=== PATIENT | male | born 1970 | race Caucasian/White ===

== ENCOUNTER → 2020-11-27 15:39 | Outpatient (CLI) | payer OTHER, SELFPAY ==
--- NOTE | ~2020-11-27 | XR_ITS ---
EXAMINATION: XR chest 2V 11/27/2020 16:31 INDICATION: Tobacco use PROCEDURE: 2 view chest COMPARISON: 12/23/2004 FINDINGS: The lungs are clear. The cardiomediastinal silhouette is within normal limits. There are no pleural effusions. There is no pneumothorax suspected. There are healed right rib fractures. IMPRESSION: 1: NO ACUTE CARDIOPULMONARY DISEASE. Reviewed, dictated and finalized at location A. E SERVICE TECHNICIAN
== END ==
PROVIDERS: PCP Emergency Medicine; Visit Provider Emergency Medicine
DX: Z72.0 Tobacco use (principal)
CPT/HCPCS: 71046

== ENCOUNTER 2020-11-28 09:56 | Emergency (ER) | payer OTHER, SELFPAY ==
[2020-11-28 10:08] VITALS: BP 141/64; PULSE 94; RESP 18; TEMP 36.3; O2SAT 96
[2020-11-28 10:11] LABS: Glucose Point of Care 391 (65-105)
[2020-11-28 10:24] LABS: Basophils Absolute Auto 0.1 K/mm3 (0.0-0.1); Basophils Percent Auto 0.8 % (0.2-1.2); Eosinophils Absolute Auto 0.2 K/mm3 (0-0.3); Eosinophils Percent Auto 2.1 % (0-4.4); Hematocrit 45.8 % (42.0-52.0); Hemoglobin 16.5 g/dL (14.0-18.0); Immature Granulocyte Absolute 0.01 K/mm3 (0.00-0.031); Immature Granulocyte Percent A 0.1 % (0-0.5); Lymphocytes Absolute Auto 1.82 K/mm3 (0.9-3.2); Lymphocytes Percent Auto 23.6 % (18.3-44.2); Mean Corpuscular Hemoglobin 31.9 pg (26-34); Mean Corpuscular Volume 88.6 fl (80-100); Monocytes Absolute Auto 0.7 K/mm3 (0.1-0.6); Monocytes Percent Auto 8.4 % (2.6-8.5); Platelet Count Result 149 k/mm3 (150-375); Red Blood Count 5.17 M/mm3 (4.6-6.20); Red Cell Distribution Width 12.8 % (11.5-14.5); White Blood Count 7.7 K/mm3 (4.5-10.0)
[2020-11-28 10:36] LABS: Alanine Aminotransferase 71 U/L (4-50); Albumin Level 3.9 g/dL (3.5-5.1); Alkaline Phosphatase 169 U/L (38-126); Anion Gap 8 mmol/L (8-16); Aspartate Amino Transferase 76 U/L (17-59); Bilirubin,Total 0.6 mg/dL (0.2-1.3); Blood Urea Nitrogen 14 mg/dL (9-20); Carbon Dioxide 25 mmol/L (22-30); Chloride 101 mmol/L (98-107); Estimated CRCL calculation 141 ml/min; Estimated Glomerular Filt Rate > 60; Glucose 364 mg/dL (75-110); Magnesium 1.5 mg/dL (1.6-2.3); Potassium 4.3 mmol/L (3.4-5.0); Sodium 134 mmol/L (137-145)
[2020-11-28 10:37] LABS: Add Urine Microscopic? YES; Appearance Urine Clear (Clear); Bilirubin Urine Negative (Negative); Blood Urine Negative (Negative); Color Urine Straw (Yellow); Glucose Urine UA 3+ mg/dL (Negative); Ketones Urine Negative (Negative); Leukocyte Esterase Ur Negative LEU/UL (Negative); Nitrate Urine Negative (Negative); Protein Urine Negative (Negative); RBC Urine 0-2 /hpf (0-2); Specific Grav Ur 1.029 (1.001-1.035); Squamous Epithelial Cell Urine Rare /hpf (Few); Urobilinogen Urine Negative mg/dL (<2.0); WBC Urine 0-3 /hpf
[2020-11-28 11:44] VITALS: BP 137/81; PULSE 89; RESP 18; TEMP 36.6; O2SAT 97
[2020-11-28 12:07] LABS: Glucose Point of Care 309 (65-105)
--- NOTE | 2020-11-28 12:16 | ED.RECABL ---
HPI - Recheck/Abnormal Lab/Rx General Chief Complaint: Recheck/Abnormal Lab/Rx Stated Complaint: high blood sugar Time Seen by Provider: 11/28/20 11:53 Source: patient Mode of arrival: ambulatory Limitations: no limitations History of Present Illness HPI narrative: This is a 50 year old male who presents for evaluation of elevated blood sugar. Patient was evaluated by his primary care physician 2 days ago for the first time. He was diagnosed with Diabetes 2 days ago with a blood sugar of 500. Yesterday he had routine labs performed, and today he was called by his primary care physician to come to ER for an elevated blood sugar. He was started on metformin 500 mg twice a day, lisinopril 10 mg and atorvastatin. He reports frequent urination. He denies chest pain , abdominal pain, blurred vision, dizziness, nausea or vomiting. His primary care physician is Dr. Roberto Related Data Home Medications Medication Instructions Recorded Confirmed amlodipine 11/28/20 11/28/20 atorvastatin 11/28/20 lisinopril 11/28/20 metformin mg 11/28/20 Allergies Allergy/AdvReac Type Severity Reaction Status Date / Time No Known Drug Allergies Allergy Mild Unknown Verified 11/28/20 11:57 Review of Systems Review of Systems: All systems reviewed & are unremarkable except as noted in HPI and below Constitutional: Constitutional: Denies chills and Denies fever(s) Cardiovascular: Cardiovascular: Denies chest pain Respiratory: Respiratory: Denies cough and Denies dyspnea Gastrointestinal: Gastrointestinal: Denies abdominal pain and Denies nausea PMFSH Past Medical History Medical History (Updated 11/28/20 @ 12:31 by Nancy Servin MD) HLD (hyperlipidemia) HTN (hypertension) Nasal fracture Surgical History Surgical History No history of previous surgery Social History Social History (Updated 09/24/19 @ 00:10 by Luiz Vanegas) Smoking status: Current every day smoker Gender identity (if verbalized by the patient): Male Exam Const: General: no acute distress and alert Nutritional Appearance: obese Orientation/consciousness: patient oriented x3 Eyes: Pupils: Equal, round and reactive pupils present EOM: EOMs intact bilaterally Chest: Chest palpation & inspection: normal inspection of the chest Resp: Effort & Inspection: normal respiratory effort and no retractions Auscultation: clear to auscultation bilaterally Cardio: Rate: regular rate Rhythm: regular rhythm Heart sounds: no murmurs GI: GI Palp: Yes Soft to palpation, No Tenderness to palpation present (GI) and No Guarding due to palpation present (GI) Auscultation: normal bowel sounds Skin: General skin exam: normal color Rashes: no rashes Neuro: General: patient oriented x3, moves all extremities and CN's II-XI intact bilaterally Course Reevaluation(s) Reevaluation #1: I Discussed with patient that he will need to monitor blood sugar and his diet. He was found to have BS 309 but no kidney failure. No DKA. He is stable for discharge. Date: 11/28/20 Time: 12:28 Consultations Consultation #1: I spoke with Dr. Roberto. He reviewed labs today. He states he wants to keep patient's metformin at 500 mg BID. He does not want to make any changes to his medications. Date: 11/28/20 Time: 12:20 Vital Signs Vital signs: Vital Signs Temperature 97.3 F L 11/28/20 10:08 Pulse Rate 94 11/28/20 10:08 Respiratory Rate 18 11/28/20 10:08 Blood Pressure 141/64 H 11/28/20 10:08 Pulse Oximetry 96 11/28/20 10:08 Temperature 98 F 11/28/20 11:44 Pulse Rate 85 11/28/20 12:45 Respiratory Rate 16 11/28/20 12:45 Blood Pressure 139/85 11/28/20 12:45 Pulse Oximetry 97 11/28/20 12:45 MDM - Recheck/Abnormal Lab/Rx Lab Data Attestation: I reviewed the patient's lab results. Result diagrams: 11/28/20 10:14 11/28/20 10:14 Labs: Lab Results
[2020-11-28 12:38] LABS: Beta-Hydroxybutyrate/Acetoacetate 0.19 mmol/L (0.02-0.27)
[2020-11-28 12:45] VITALS: BP 139/85; PULSE 85; RESP 16; O2SAT 97
== END 2020-11-28 12:45 | disposition home or self-care (01) ==
PROVIDERS: Emergency Medicine Emergency Medical Services; Emergency Provider General Practice; PCP Emergency Medicine
DX: E11.65 Type 2 diabetes mellitus with hyperglycemia (principal); E78.5 Hyperlipidemia, unspecified; I10 Essential (primary) hypertension; F17.200 Nicotine dependence, unspecified, uncomplicated; Z79.84 Long term (current) use of oral hypoglycemic drugs
CPT/HCPCS: 36415; 80053; 81001; 82010; 82948; 83735; 84100; 85025; 99283

== ENCOUNTER 2022-05-05 09:46 | Emergency (ER) | payer OTHER, SELFPAY ==
[2022-05-05 09:55] VITALS: BP 139/80; PULSE 86; RESP 18; TEMP 36.6; O2SAT 98
[2022-05-05 09:58] VITALS: BP 139/80; PULSE 86; RESP 18; TEMP 36.6; O2SAT 98
--- NOTE | 2022-05-05 10:02 | ED.SKABFB ---
HPI - Skin/Abscess/Foreign Bdy General Chief complaint: Skin/Abscess/Foreign Body Stated complaint: Cyst on Arm Time Seen by Provider: 05/05/22 10:02 Source: patient, RN notes reviewed and old records reviewed Mode of arrival: ambulatory Limitations: no limitations History of Present Illness HPI narrative: 51-year-old male presents to the [facility] with multiple complaints. Has an abscess to the right ulnar aspect antecubital area that he reports has been there for 2 to 3 days. Reports that it started as a zit, popped it yesterday and again this morning. Reports yellow drainage. Patient also reports generalized itching, urinary frequency. Patient reports that he used to be a patient of Dr. Roberto, reports that he was fired due to missing appointments. Is needing a new doctor. Has not used his insulin in a couple of months. MD complaint: abscess/boil Onset (ago): day(s) (2-3) Location: [facility] Related Data Home Medications Medication Instructions Recorded Confirmed No Home Medications 05/05/22 05/05/22 Allergies Allergy/AdvReac Type Severity Reaction Status Date / Time No Known Drug Allergies Allergy Mild Unknown Verified 05/05/22 09:54 Review of Systems Review of Systems: All systems reviewed & are unremarkable except as noted in HPI and below Constitutional: Constitutional: Reports no additional constitutional complaints, Denies chills and Denies fever(s) Eyes: Eyes: Reports no additional eye complaints ENT: Reports system reviewed and no additional complaints, except as documented Cardiovascular: Cardiovascular: Reports no additional cardiovascular complaints Respiratory: Respiratory: Reports no additional respiratory complaints Gastrointestinal: Gastrointestinal: Reports no additional gastrointestinal complaints Genitourinary: Genitourinary: Reports as per HPI (Urinary frequency) Musculoskeletal: Musculoskeletal: Reports no additional musculoskeletal complaints Integumentary/Breasts: Skin/Breast: Reports system reviewed and no additional complaints, except as docu Neurologic: Reports system reviewed and no additional complaints, except as documented Psychiatric: Psychiatric: Reports no additional psychiatric complaints Endocrine: Endocrine: Reports as per HPI, Reports fatigue, Reports polydipsia and Reports polyuria Allergic/Immunologic: Allergic/Immunologic: Reports no additional allergic/immunologic complaints PMFSH Past Medical History Medical History (Updated 05/05/22 @ 10:15 by Adriane Woody APRN) Diabetes HLD (hyperlipidemia) HTN (hypertension) Nasal fracture Noncompliance with diabetes treatment Surgical History Surgical History No history of previous surgery Social History Social History Smoking status: Current every day smoker Gender identity (if verbalized by the patient): Male Comments At the time of my signature, I reviewed and agree with the nursing past medical, surgical, social, and family history. There is no relevant family history pertinent to the patient complaint. Exam Const: General: healthy appearing, no acute distress and alert Nutritional Appearance: well nourished and obese Orientation/consciousness: patient oriented x3 Limitations: no limitations HENMT: Head: normal to inspection Ears: external ears normal General nose exam: Normal external nose present Face and sinus: normal facial exam Eyes: General: appearance normal, both eyes and all related structures Pupils: Equal, round and reactive pupils present Neck: Neck: normal visual inspection, no lymphadenopathy and no meningeal signs Chest: Chest palpation & inspection: normal inspection of the chest Resp: Effort & Inspection: normal respiratory effort and no use of accessory muscles Auscultation: clear to auscultation bilaterally Cardio: Rate: regular rate Rhythm: regular rhythm B
[2022-05-05 10:04] LABS: Glucose Point of Care > 500 mg/dl (65-105)
== END 2022-05-05 10:10 | disposition short-term general hospital (02) ==
PROVIDERS: Emergency Provider Nurse Practitioner; PCP Emergency Medicine
DX: L02.413 Cutaneous abscess of right upper limb (principal); E11.65 Type 2 diabetes mellitus with hyperglycemia; Z91.14 Patient's other noncompliance with medication regimen; E78.5 Hyperlipidemia, unspecified; I10 Essential (primary) hypertension; F17.200 Nicotine dependence, unspecified, uncomplicated
CPT/HCPCS: 82948; 99212; G0463

== ENCOUNTER 2022-06-02 09:23 | Outpatient (CLI) | payer OTHER, SELFPAY ==
[2022-06-02 18:41] LABS: Hematocrit 50.3 % (42.0-52.0); Hemoglobin 17.3 g/dL (14.0-18.0); Mean Corpuscular HGB Conc 34.4 g/dl (32-36); Mean Corpuscular Hemoglobin 31.3 pg (26-34); Red Blood Count 5.53 M/mm3 (4.6-6.20)
[2022-06-02 18:42] LABS: Basophils Absolute Auto 0.1 K/mm3 (0.0-0.1); Eosinophils Absolute Auto 0.3 K/mm3 (0-0.3); Eosinophils Percent Auto 3.1 % (0-4.4); Immature Granulocyte Absolute 0.04 K/mm3 (0.00-0.031); Immature Granulocyte Percent A 0.4 % (0-0.5); Lymphocytes Absolute Auto 2.51 K/mm3 (0.9-3.2); Mean Platelet Volume 12.8 fl (7.4-10.4); Monocytes Absolute Auto 0.7 K/mm3 (0.1-0.6); Monocytes Percent Auto 8.1 % (2.6-8.5); Neutrophils Absolute Auto 5.3 K/mm3 (1.3-6.7); Neutrophils Percent Auto 59.4 % (45.5-73.1); Platelet Count Result 187 k/mm3 (150-375); Red Cell Distribution Width 12.4 % (11.5-14.5)
[2022-06-02 18:54] LABS: Alanine Aminotransferase 65 U/L (6-50); Albumin Level 4.1 g/dL (3.5-5.1); Alkaline Phosphatase 170 U/L (38-126); Anion Gap 15 mmol/L (8-16); Aspartate Amino Transferase 47 U/L (17-59); Bilirubin,Total 0.3 mg/dL (0.2-1.3); Blood Urea Nitrogen 8 mg/dL (9-20); Carbon Dioxide 25 mmol/L (22-30); Chloride 98 mmol/L (98-107); Cholesterol 181 mg/dL (0-200); Estimated Glomerular Filt Rate > 60; Glucose 351 mg/dL (65-110); HDL Direct 25 mg/dL; Potassium 4.2 mmol/L (3.4-5.0); Sodium 138 mmol/L (137-145); Triglycerides 359 mg/dL (<150)
[2022-06-02 19:05] LABS: LDL Cholesterol Direct 99 mg/dL
[2022-06-02 19:09] LABS: Beta-Hydroxybutyrate/Acetoacetate 0.06 mmol/L (0.02-0.27)
[2022-06-02 19:22] LABS: Creatinine Urine 67.3 mg/dL
[2022-06-02 19:30] LABS: MALB Creatinine Ratio 40.6 mg/g (0-30); Microalbumin Urine Random 27.3 mg/L (0-16.7)
[2022-06-02 19:48] LABS: Hemoglobin A1C 12.2 % (<5.7)
[2022-06-02 20:03] LABS: Thyroid Stimulating Hormone Reflex 0.301 uIU/mL (0.465-4.68)
[2022-06-02 21:26] LABS: Total Triiodothyronine (T3) 1.52 NG/ML (0.97-1.69)
[2022-06-04 09:49] LABS: PCP NEGATIVE ng/mL (<25)
[2022-06-11 16:20] LABS: Amphetamines POSITIVE
[2022-06-11 16:21] LABS: Barbiturates NEGATIVE; Benzodiazepines NEGATIVE; Marijuana Metabolites NEGATIVE
[2022-06-11 16:22] LABS: Cocaine Metabolites NEGATIVE
== END 2022-06-02 09:24 | disposition home or self-care (01) ==
LOC: ANHGOSHLAB 09:25
PROVIDERS: PCP Emergency Medicine; Visit Provider Emergency Medicine
DX: E11.65 Type 2 diabetes mellitus with hyperglycemia (principal); R45.1 Restlessness and agitation
CPT/HCPCS: 36415; 80053; 80061; 80307; 82010; 82043; 83036; 84439; 84443; 84480; 85025

== ENCOUNTER 2022-06-16 07:26 | Outpatient (CLI) | payer OTHER, SELFPAY ==
--- NOTE | ~2022-06-16 | US_ITS ---
EXAMINATION: US abdomen limited DATE: 06/16/2022 08:10 INDICATION: Abnormal levels of other serum enzymes TECHNIQUE: Multiple grayscale and Doppler ultrasound images of the abdomen were obtained. COMPARISON: None available FINDINGS: Bowel gas obscures visualization of the pancreas. The visualized portions of the pancreas a re unremarkable. The liver demonstrates increased echogenicity, heterogenous echotexture, and decreas ed through transmission. There is a 1.6 cm cyst of the liver. No surface nodularity. Normal hepatopet al flow in the main portal vein. The gallbladder is normal with no abnormal wall thickening, perichol ecystic fluid or stones. The normal common bile duct measures 5 mm. There was no sonographic Ace s ign. IMPRESSION: 1. Diffuse hepatic steatosis. Reviewed, dictated and finalized at location A.
== END 2022-06-16 07:27 | disposition home or self-care (01) ==
PROVIDERS: PCP Emergency Medicine; Visit Provider Emergency Medicine
DX: R74.8 Abnormal levels of other serum enzymes (principal); K76.0 Fatty (change of) liver, not elsewhere classified
CPT/HCPCS: 76705

== ENCOUNTER 2022-06-22 21:32 | Emergency (ER) | payer OTHER, SELFPAY ==
[2022-06-22 21:51] VITALS: BP 167/95; PULSE 87; RESP 18; TEMP 36.3; O2SAT 99
--- NOTE | 2022-06-22 22:11 | PC.NURSE ---
Pt approached triage desk and states I think I'm just going to go home. I'll call my PCP in the morning . Pt advised of risks of leaving and benefits of staying to see provider. Pt verbalized understanding and ambulated out of Ed with steady gait.
== END 2022-06-22 22:43 | disposition left against medical advice (07) ==
LOC: ANHED 22:24
PROVIDERS: PCP Emergency Medicine
DX: L02.11 Cutaneous abscess of neck (principal)
CPT/HCPCS: 99199

== ENCOUNTER 2022-06-23 08:14 | Emergency (ER) | payer OTHER, SELFPAY ==
--- NOTE | 2022-06-23 08:19 | ED.SKABFB ---
HPI - Skin/Abscess/Foreign Bdy General Chief complaint: Skin/Abscess/Foreign Body Stated complaint: ABSCESS Time Seen by Provider: 06/23/22 08:19 Source: patient and RN notes reviewed History of Present Illness HPI narrative: Patient is a 51-year-old male who presents the urgent care with complaints of an abscess to the posterior neck. Patient states its been there for approximately 2 weeks and he is using Prid and trying to squeeze on the area. Patient states that he was out of his medications over the last 6 months due to not having a primary care doctor. Patient states that after being off his insulin he started to develop abscesses. Patient states that he also has 1 on the left upper arm which is drained and no longer painful. Patient denies any fevers, nausea or vomiting. No other acute complaints. No acute distress noted. Patient aware of the plan of care. Some parts of this dictation were generated by voice recognition software and may contain typographical and/or grammatical inaccuracies. Related Data Allergies Allergy/AdvReac Type Severity Reaction Status Date / Time No Known Drug Allergies Allergy Mild Unknown Verified 06/22/22 21:56 Review of Systems Review of Systems: CONSTITUTIONAL: Denies fever, chills, or sweats. EYES: Denies visual changes, redness, or discharge. ENT: Denies rhinorrhea, congestion, sore throat, or otalgia. CARDIOVASCULAR: Denies chest pain, palpitations, or edema. RESPIRATORY: Denies cough or dyspnea. GASTROINTESTINAL: Denies abdominal pain, nausea, vomiting, or diarrhea. GENITOURINARY: Denies dysuria or hematuria. SKIN: Reports of a painful large abscess to the posterior neck MUSCULOSKELETAL: Denies back pain, joint pain, or myalgia. NEUROLOGIC: Denies headache, numbness, or weakness. All other systems reviewed are negative, except as documented in HPI. [facility] Past Medical History Medical History Diabetes HLD (hyperlipidemia) HTN (hypertension) Nasal fracture Noncompliance with diabetes treatment Surgical History Surgical History No history of previous surgery Social History Social History (Updated 06/09/22 @ 15:06 by Georgie Askew) Social History: Caffeine-soda Smoking packs per day: 1 Smoking cigarettes per day: 20.0 Years smoked: 30 Smoking pack-years: 30.00 Smoking status: Current every day smoker Alcohol intake: former Alcohol use details: quit 3 yrs ago Gender identity (if verbalized by the patient): Male Comments At the time of my signature, I reviewed and agree with the nursing past medical, surgical, social, and family history. There is no relevant family history pertinent to the patient complaint. Exam Narrative: GENERAL: This is a well-nourished, well-developed patient, in no apparent distress. HEAD: normocephalic, atraumatic. EYES: PERRL. Sclera clear/white. Vision is grossly intact. EARS: External ears normal NOSE: External nose normal with no obvious nasal discharge, nares without redness, no rhinorrhea. THROAT: Mucous membranes moist NECK: Neck supple SKIN: 8 x 9cm mildly erythemic, moderately tender nonfluctuant/firm abscess to the posterior neck/cervical weeping scant serosanguineous fluid NEURO: awake, alert, and oriented to person, place and time. There were no obvious focal neurologic abnormalities. EXTREMITIES: No clubbing, cyanosis, or edema. Course Course Level of Care: Express Care Visit Vital Signs Vital signs: Vital Signs Temperature 97.1 F L 06/23/22 08:20 Pulse Rate 81 06/23/22 08:20 Respiratory Rate 20 06/23/22 08:20 Blood Pressure 164/98 H 06/23/22 08:20 Pulse Oximetry 97 06/23/22 08:20 Oxygen Delivery Room Air 06/23/22 08:20 Temperature 97.1 F L 06/23/22 08:20 Pulse Rate 81 06/23/22 08:20 Respiratory Rate 20 06/23/22 08:20 Blood Pressure 164/98 H 06/23/22 08:20 Pulse Oximetry 97 06/23
[2022-06-23 08:20] VITALS: BP 164/98; PULSE 81; RESP 20; TEMP 36.2; O2SAT 97
== END 2022-06-23 08:41 | disposition home or self-care (01) ==
PROVIDERS: Emergency Provider Nurse Practitioner Family; PCP Emergency Medicine
DX: L02.11 Cutaneous abscess of neck (principal); F17.210 Nicotine dependence, cigarettes, uncomplicated; E11.9 Type 2 diabetes mellitus without complications; E78.5 Hyperlipidemia, unspecified; I10 Essential (primary) hypertension
CPT/HCPCS: 99213; G0463

== ENCOUNTER 2022-08-21 09:57 | Emergency (ER) | payer OTHER, SELFPAY ==
[2022-08-21 10:11] VITALS: BP 155/90; PULSE 93; RESP 16; TEMP 36.1; O2SAT 98
--- NOTE | 2022-08-21 10:24 | ED.URI ---
HPI - URI/Sore Throat General Chief Complaint: Upper Respiratory Infection Stated Complaint: cold/flu Time Seen by Provider: 08/21/22 10:15 Source: patient Mode of arrival: ambulatory Limitations: no limitations History of Present Illness HPI Narrative: Chinedu is a 52-year-old male patient presenting to clinic today with complaints of runny nose, congestion, sinus pressure, right ear pain and a non productive cough for a few weeks. He denies any fever or chills here in the past few days. States his breath smells horrible and he has a foul taste in his mouth. MD elicited complaint: cough, rhinorrhea, nasal congestion, sinus pain and other Related Data Allergies Allergy/AdvReac Type Severity Reaction Status Date / Time No Known Drug Allergies Allergy Mild Unknown Verified 08/21/22 10:10 Review of Systems Review of Systems: Pertinent positives per HPI. Patient denies any fever, chills, rash, headache, visual changes, dizziness, cough, shortness of breath, chest pain, palpitations, nausea, vomiting, diarrhea, constipation, abdominal pain, or any urinary issues. PMFSH Past Medical History Medical History Diabetes HLD (hyperlipidemia) HTN (hypertension) Nasal fracture Noncompliance with diabetes treatment Surgical History Surgical History No history of previous surgery Social History Social History Social History: Caffeine-soda Smoking packs per day: 1 Smoking cigarettes per day: 20.0 Years smoked: 30 Smoking pack-years: 30.00 Smoking status: Current every day smoker Alcohol intake: former Alcohol use details: quit 3 yrs ago Gender identity (if verbalized by the patient): Male Comments At the time of my signature, I reviewed and agree with the nursing past medical, surgical, social, and family history. There is no relevant family history pertinent to the patient complaint. Exam Narrative: General: Well-developed, well nourished, in no apparent distress Head: Normocephalic, atraumatic Eyes: Pupils equally round and reactive to light bilaterally, EOM intact, sclera and conjunctive clear, no discharge, lids normal Ears: Left TMs intact and dull, right TM intact, bulging, red, ear canals clear, no drainage, grossly hearing normal. Nose: Nares patent, yellow nasal discharge, severe inflammation, maxillary and frontal sinus tenderness. Mouth: Oral pharynx without lesions or masses, good dentition, MMM. Postnasal drip Neck: Supple, trachea midline, no enlargement of anterior or posterior cervical nodes, no thyroid masses or goiter palpable. Cardio: Regular rate and rhythm, s1 and s2 normal, no murmur appreciated. Resp: Diminished in the bases otherwise clear, no rhonchi, rales, wheezing or rubs Course Course Emergency Course: Portions of this record may have been created with voice recognition software. Level of Care: Express Care Visit Vital Signs Vital signs: Vital Signs Temperature 36.1 C L 08/21/22 10:11 Pulse Rate 93 08/21/22 10:11 Respiratory Rate 16 08/21/22 10:11 Blood Pressure 155/90 H 08/21/22 10:11 Pulse Oximetry 98 08/21/22 10:11 Temperature 36.1 C L 08/21/22 10:11 Pulse Rate 93 08/21/22 10:11 Respiratory Rate 16 08/21/22 10:11 Blood Pressure 155/90 H 08/21/22 10:11 Pulse Oximetry 98 08/21/22 10:11 Vital signs reviewed MDM - URI/Sore Throat MDM Narrative Medical decision making narrative: At the time of the patient is resting comfortably on the exam table. I suspect patient has acute bacterial rhinosinusitis with right otitis media. Prescription for prednisone and Augmentin was sent to the pharmacy. Supportive measures were discussed with the patient voiced understanding of discharge instructions and agrees to treatment plan. Differential Diagnosis Differential
== END 2022-08-21 10:30 | disposition home or self-care (01) ==
PROVIDERS: Emergency Provider Nurse Practitioner Family; PCP Emergency Medicine
DX: J01.90 Acute sinusitis, unspecified (principal); B96.89 Other specified bacterial agents as the cause of diseases classified elsewhere; H66.91 Otitis media, unspecified, right ear; I10 Essential (primary) hypertension; E11.9 Type 2 diabetes mellitus without complications; E78.5 Hyperlipidemia, unspecified; F17.210 Nicotine dependence, cigarettes, uncomplicated
CPT/HCPCS: 99213; G0463

== ENCOUNTER 2022-11-11 08:15 | Outpatient (CLI) | payer OTHER, SELFPAY ==
[2022-11-11 18:59] LABS: Alanine Aminotransferase 78 U/L (6-50); Albumin Level 4.2 g/dL (3.5-5.1); Alkaline Phosphatase 129 U/L (38-126); Anion Gap 9 mmol/L (8-16); Aspartate Amino Transferase 47 U/L (17-59); Bilirubin,Total 0.6 mg/dL (0.2-1.3); Blood Urea Nitrogen 9 mg/dL (9-20); Calcium 8.7 mg/dL (8.4-10.2); Carbon Dioxide 27 mmol/L (22-30); Chloride 101 mmol/L (98-107); Cholesterol 176 mg/dL (0-200); Estimated Glomerular Filt Rate > 60; Glucose 292 mg/dL (65-110); HDL Direct 28 mg/dL; Sodium 137 mmol/L (137-145); Triglycerides 375 mg/dL (<150)
[2022-11-11 19:06] LABS: Free T4 Free Thyroxine 1.08 ng/mL (0.78-2.19)
[2022-11-11 19:10] LABS: LDL Cholesterol Direct 91 mg/dL
[2022-11-11 19:14] LABS: Hemoglobin A1C 7.3 % (<5.7)
[2022-11-11 19:24] LABS: Thyroid Stimulating Hormone 0.606 uIU/mL (0.465-4.680)
== END 2022-11-11 08:16 | disposition home or self-care (01) ==
LOC: ANHGOSHLAB 08:16
PROVIDERS: PCP Emergency Medicine; Visit Provider Emergency Medicine
DX: E11.9 Type 2 diabetes mellitus without complications (principal); Z79.4 Long term (current) use of insulin; E78.2 Mixed hyperlipidemia; R94.6 Abnormal results of thyroid function studies
CPT/HCPCS: 36415; 80053; 80061; 83036; 84439; 84443

== ENCOUNTER 2023-04-30 10:56 | Outpatient (CLI) | payer OTHER, SELFPAY ==
[2023-04-30 18:27] LABS: Hemoglobin A1C 9.4 % (<5.7)
[2023-04-30 18:31] LABS: Alanine Aminotransferase 81 U/L (6-50); Alkaline Phosphatase 174 U/L (38-126); Anion Gap 8 mmol/L (8-16); Aspartate Amino Transferase 70 U/L (17-59); Bilirubin,Total 0.6 mg/dL (0.2-1.3); Blood Urea Nitrogen 11 mg/dL (9-20); Calcium 8.6 mg/dL (8.4-10.2); Carbon Dioxide 27 mmol/L (22-30); Chloride 98 mmol/L (98-107); Estimated Glomerular Filt Rate > 60; Glucose 460 mg/dL (65-110); Potassium 4.3 mmol/L (3.4-5.0); Sodium 133 mmol/L (137-145)
[2023-04-30 18:36] LABS: Creatinine Urine 31.3 mg/dL
[2023-04-30 18:40] LABS: Microalbumin Urine Random 36.3 mg/L (0-16.7)
[2023-04-30 20:01] LABS: Troponin I 0.045 ng/mL (0.000-0.034)
== END 2023-04-30 10:57 | disposition home or self-care (01) ==
LOC: ANHGOSHLAB 10:56
PROVIDERS: PCP Emergency Medicine; Visit Provider Emergency Medicine
DX: E11.9 Type 2 diabetes mellitus without complications (principal); Z79.4 Long term (current) use of insulin; R74.8 Abnormal levels of other serum enzymes; I20.8 Other forms of angina pectoris
CPT/HCPCS: 36415; 80053; 82043; 83036; 84484

== ENCOUNTER 2023-06-15 09:43 | Outpatient (CLI) | payer OTHER, SELFPAY ==
--- NOTE | 2023-06-15 09:57 | ECHO_ITS ---
Patient Info Name: Chinedu Butterfield Age: 52 years : 1970 Gender: Male Ht: 71 in Wt: 235 lbs BSA: 2.34 m2 HR: 86 bpm BP: 160 / 86 mmHg Technical Quality: Poor Exam Date: 06/15/2023 9:59 AM Exam Location: [facility] Patient Status: Outpatient Admit Date: 06/15/2023 Staff Ordering Physician: Shawn Linder MD [employer]inct Commanding Officer: Leah Singh RDCS Attending Provider: Shawn Linder MD Referring Physician: Kailash MONTOYA; Exam Type: CA echo dop color flow w con Study Info Indications R06.02 - Shortness of breath Complete two-dimensional, color flow and Doppler transthoracic echocardiogram is performed with contrast to opacify the left ventricle and to improve the deliniation of the left ventricle endocardial borders. Contrast/Agitated Saline Contrast/Ag. Saline: Definity Amount: 4.00 ml Administered By: Leah Singh RDCS New IV Access: Inner Forearm and Left Site Condition: No extravasation, Site dressing applied and IV removed Reason for Poor Study: poor echocardiographic windows Summary 1. Technically suboptimal study due to poor sonographic images. 2. Definity contrast administered improved wall motion interpretation. 3. Left ventricular chamber dimension is moderately enlarged. 4. Left ventricular systolic function is severely globally reduced, estimated at 25-30%. 5. There is mild concentric increased left ventricular wall thickness. 6. The left ventricular diastolic function is grade II diastolic dysfunction. 7. E/e' 18 is elevated. 8. Left atrial chamber dimension is moderately enlarged. 9. There is mild aortic valve sclerosis. 10. There is moderate mitral valve regurgitation. 11. Mild pulmonary hypertension, estimated pulmonary arterial systolic pressure is 42 mmHg. Left Ventricle E/e' 18 is elevated. Definity contrast administered improved wall motion interpretation. Technically suboptimal study due to poor sonographic images. Left ventricular chamber dimension is moderately enlarged. Left ventricular systolic function is severely globally reduced, estimated at 25-30%. There is mild concentric increased left ventricular wall thickness. The left ventricular diastolic function is grade II diastolic dysfunction. Right Ventricle Right ventricular chamber dimension is normal. Right ventricular systolic function is normal. Left Atria Left atrial chamber dimension is moderately enlarged. Right Atria Right atrial chamber dimension is normal. Aortic Valve The aortic valve is trileaflet. There is mild aortic valve sclerosis. There is no aortic valve stenosis. There is no aortic valve regurgitation. Pulmonic Valve There is no pulmonic regurgitation. Mitral Valve There is no mitral valve stenosis. There is moderate mitral valve regurgitation. Tricuspid Valve There is no tricuspid valve regurgitation. Mild pulmonary hypertension, estimated pulmonary arterial systolic pressure is 42 mmHg. Pericardium/Pleural There is no pericardial effusion. Inferior Vena Cava Normal inferior vena cava with >50% collapse upon inspiration consistent with normal right atrial pressure, 5 mmHg. Aorta The aortic root size at the sinus of Valsalva is normal. Left Ventricular Outflow Tract Name Value Normal LVOT 2D LVOT Diameter 2.
[2023-06-15] MEDS: PERFLUTREN LIPID MICROSPHERES 1.5 ML VIAL DILUTED TO 10 ML TOTAL VOLUME IV PUSH (10:38)
--- NOTE | 2023-06-15 10:56 | IVDEFINITY ---
Prior to administration of IV Definity the patient was educated on the risks and benefits of the imaging enhancing agent including potential adverse side effects. The patient verbalized understanding. Allergies were verified. No exclusion criteria were identified and at least one of the following inclusion criteria were met: 1) physician request, 2) patient technically difficult to image (per the [place] [employer]ocardi[employer] guidelines of two or more segments not discernable within the apical view), or 3) questionable left ventricular function. ?
== END 2023-06-15 09:44 | disposition home or self-care (01) ==
LOC: ANHCARD 09:44
PROVIDERS: PCP Emergency Medicine; Visit Provider Emergency Medicine
DX: R06.02 Shortness of breath (principal); I08.0 Rheumatic disorders of both mitral and aortic valves; I27.20 Pulmonary hypertension, unspecified
CPT/HCPCS: C8929; Q9957

== ENCOUNTER 2023-06-16 10:58 | Outpatient (CLI) | payer OTHER, SELFPAY ==
--- NOTE | ~2023-06-16 | CT_ITS ---
EXAMINATION: CT lung screening DATE: 06/16/2023 11:29 INDICATION: Tobacco dependence TECHNIQUE: Computed tomography (CT) of the chest was performed without intravenous contrast. The dose -length product was 293.98 mGy-cm. Automated exposure control and iterative reconstruction technique were employed. COMPARISON: None FINDINGS: Small right pleural effusion. Borderline heart size. No pericardial effusion. There is medi astinal lymphadenopathy, likely reactive. Calcified granuloma right lower lobe. There is dependent at electasis. There is emphysema. No endobronchial lesions. No pneumothorax. IMPRESSION: 1. Lung-RADS category 2: Benign appearance or behavior. Continue annual screening with noncontrast lo w-dose chest CT in 12 months. Reviewed, dictated and finalized at location B. IMPRESSION: 1. Lung-RADS category 2: Benign appearance or behavior. Continue annual screeni ng with noncontrast low-dose chest CT in 12 months.
== END 2023-06-16 10:59 | disposition home or self-care (01) ==
PROVIDERS: PCP Emergency Medicine; Visit Provider Emergency Medicine
DX: Z12.2 Encounter for screening for malignant neoplasm of respiratory organs (principal); Z87.891 Personal history of nicotine dependence
CPT/HCPCS: 71271

== ENCOUNTER 2023-07-07 08:02 | Emergency (ER) | payer OTHER, SELFPAY ==
--- NOTE | 2023-07-07 08:14 | ED.URI ---
HPI - URI/Sore Throat General Chief Complaint: Shortness of Breath/Dyspnea Stated Complaint: Shortness of Breath,Chest Pain,Headache Time Seen by Provider: 07/07/23 08:14 Source: patient Mode of arrival: ambulatory Limitations: no limitations History of Present Illness HPI Narrative: 53 yo M with hx of diabetes, HTN presents with c/o SOB, CP for [address] lung and echo end of may. Reports SOB, CP worse the past week. Pt gasping for air. Reports pain center of chest. Denies N/V, diaphoresis. All systems reviewed and negative except as noted above. Related Data Allergies Allergy/AdvReac Type Severity Reaction Status Date / Time No Known Drug Allergies Allergy Mild Unknown Verified 07/07/23 08:15 Review of Systems Review of Systems: CONSTITUTIONAL: Denies fever, chills, or sweats. EYES: Denies visual changes, redness, or discharge. ENT: Denies rhinorrhea, congestion, sore throat, or otalgia. CARDIOVASCULAR: Reports chest pain. Denies palpitations, or edema. RESPIRATORY: Denies cough. Reports dyspnea. GASTROINTESTINAL: Denies abdominal pain, nausea, vomiting, or diarrhea. GENITOURINARY: Denies dysuria or hematuria. SKIN: Denies rash or itching. MUSCULOSKELETAL: Denies back pain, joint pain, or myalgia. NEUROLOGIC: Denies headache, numbness, or weakness. PSYCHIATRIC: Denies anxiety or depression. All other systems reviewed are negative, except as documented in HPI. [facility] Past Medical History Medical History Diabetes HLD (hyperlipidemia) HTN (hypertension) Nasal fracture Noncompliance with diabetes treatment Surgical History Surgical History No history of previous surgery Social History Social History Social History: Caffeine-soda Smoking packs per day: 1 Smoking cigarettes per day: 20.0 Years smoked: 30 Smoking pack-years: 30.00 Smoking status: Current every day smoker Alcohol intake: former Alcohol use details: quit 3 yrs ago Lack of Transportation: No Lack of Food: Never True Current Housing: I Have Housing Concerned About Future Housing: No Difficulty Paying Gas/Electric Bills: YES Difficulty Paying for Meds: No Currently Unemployed: YES Education: High School Diploma/GED Difficulty w/ Childcare or Family Care: No Gender identity (if verbalized by the patient): Male Comments At time of signature, agree with nursing past medical, surgical, social and family history. There is no relevant family history pertinent to the presenting complaint. Exam Narrative: GENERAL: This is a well-nourished, well-developed patient, in no apparent distress. HEAD: normocephalic, atraumatic. EYES: PERRL. Sclera clear/white. Vision is grossly intact. EARS: External ears normal, auditory canals clear and without drainage, TMs normal without perforation. Hearing grossly intact. NOSE: External nose normal with no obvious nasal discharge, nares without redness, no rhinorrhea. THROAT: Mucous membranes moist, posterior pharynx clear. NECK: Neck supple, non-tender without lymphadenopathy, masses or thyromegaly. CARDIOVASCULAR: tachycardia, HR 155 without murmurs, gallops, or rubs. RESPIRATORY: Clear to auscultation, tachypnea. No wheezes, rales, or rhonchi. SKIN: warm, Dry, intact with no suspicious lesions or rash, good texture and turgor. NEURO: awake, alert, and oriented to person, place and time. There were no obvious focal neurologic abnormalities. EXTREMITIES: No joint tenderness, effusion, or edema noted. Course Course Level of Care: Express Care Visit Vital Signs Vital signs: Vital Signs Temperature 36.8 C 07/07/23 08:16 Pulse Rate 152 H 07/07/23 08:16 Respiratory Rate 24 H 07/07/23 08:16 Blood Pressure 108/87 07/07/23 08:16 Pulse Oximetry 96 07/07/23 08:16 Temperature 36.8 C
[2023-07-07 08:16] VITALS: BP 108/87; PULSE 152; RESP 24; TEMP 36.8; O2SAT 96
--- NOTE | 2023-07-07 08:27 | ECG_ITS ---
Measurements Intervals [place] Rate: 154 P: [place]: 0 QRS: 40 QRSD: 92 T: 168 QT: 296 QTc: 474 Interpretive Statements ATRIAL FLUTTER/TACHYCARDIA WITH RAPID VENTRICULAR RESPONSE ST AND T-WAVE ABNORMALITY, CONSIDER MYOCARDIAL ISCHEMIA ANTEROLATERAL LEADS ABNORMAL ECG NO PREVIOUS ECG AVAILABLE FOR COMPARISON Electronically Signed On 07-07-2023 18:26:06 CDT by Michael Yuan M.D.
[2023-07-07 08:41] VITALS: PULSE 156; RESP 22; O2SAT 97
== END 2023-07-07 08:35 | disposition short-term general hospital (02) ==
PROVIDERS: Emergency Provider Nurse Practitioner Family; PCP Emergency Medicine
DX: R07.9 Chest pain, unspecified (principal); I48.92 Unspecified atrial flutter; Z87.891 Personal history of nicotine dependence; E11.9 Type 2 diabetes mellitus without complications; E78.5 Hyperlipidemia, unspecified; I10 Essential (primary) hypertension
CPT/HCPCS: 93005; 99215; G0463

== ENCOUNTER 2023-07-07 09:07 | Inpatient (IN) | payer OTHER, SELFPAY ==
[2023-07-07] VITALS (32 sets, daily range): BP systolic 90–128; BP diastolic 61–104; PULSE 111–154; RESP 12–34; TEMP 36.4–37; O2SAT 92–100; BMI 37.5
--- NOTE | ~2023-07-07 | CT_ITS ---
EXAMINATION: CTA chest PE protocol DATE: 07/07/2023 20:33 INDICATION: Shortness of breath. Tachycardia. TECHNIQUE: Computed tomography angiography (CTA) of the chest was performed with 100 mL Omnipaque-350 intravenous contrast timed to evaluate the pulmonary arteries. Coronal maximum intensity projection 3D-reconstructions were created by the technologist. Automated exposure control and iterative reconst ruction technique were employed. The dose-length product was 948.18 mGy-cm. COMPARISON: Chest CT 06/16/2023 FINDINGS: There is mild emphysema. There is smooth septal thickening bilaterally with mild groundglas s opacities, consistent with pulmonary edema. There is dependent atelectasis bilaterally. There are s mall pleural effusions. Cardiomegaly is noted. No pericardial effusion. There is no pulmonary embolus . There is mild mediastinal lymphadenopathy. There is a 9 mm cyst in the liver. There is mild thoraci c spondylosis. There is mild chronic anterior wedging of T12 vertebral body. IMPRESSION: 1. No pulmonary embolus. 2. Mild pulmonary edema. 3. Small pleural effusions. 4. Mild emphysema. 5. Mild mediastinal lymphadenopathy, likely reactive. Reviewed, dictated and finalized at location E.
--- NOTE | ~2023-07-07 | XR_ITS ---
Portable chest x-ray Comparison: 11/27/2020 Clinical History: Shortness of breath Findings: There is small right pleural effusion present. Probable minimal bibasilar pulmonary edema. Cardiomediastinal silhouette is stable. Bones and soft tissues are unremarkable. Impression: Minimal bibasilar pulmonary edema with small right pleural effusion. Reviewed, dictated and finalized at [facility] [place]. Impression: Minimal bibasilar pulmonary edema with small right pleural effusion.
--- NOTE | ~2023-07-07 | XR_ITS ---
Portable chest x-ray Comparison: 07/08/2023 at 6:10 AM Clinical History: Line placement Findings: Right IJ line is in place, tip probably in the SVC. Endotracheal tube and NG tube remain i n place. There is moderate pulmonary edema pattern with probable small right pleural effusion. Cardi omediastinal silhouette is stable. Bones and soft tissues are unremarkable. Impression: Support tubes, as above. Moderate pulmonary edema pattern with small right pleural effusion. No pneumothorax. Reviewed, dictated and finalized at location . Impression: Support tubes, as above. Moderate pulmonary edema pattern with small right pleural effusion. No pneumothorax.
--- NOTE | ~2023-07-07 | XR_ITS ---
Portable chest x-ray Comparison: 07/08/2023 at 1:47 AM Clinical History: Tube placement Findings: Endotracheal tube and NG tube are in satisfactory positions. There is extensive worsening hazy pulmonary disease. Probable small right pleural effusion. Cardiomediastinal silhouette is stabl e. Bones and soft tissues are unremarkable. Impression: Support tubes, as above. Moderate pulmonary edema pattern with small right pleural effusion. Reviewed, dictated and finalized at location . Impression: Support tubes, as above. Moderate pulmonary edema pattern with small right pleural effusion.
--- NOTE | ~2023-07-07 | XR_ITS ---
Portable upright view of the abdomen Clinical history: NG tube placement Findings: NG tube in satisfactory position. Bowel gas pattern is nonspecific. No evidence for obstruc tion or free air. No abnormal mass lesion or calcification is seen. Extensive hazy pulmonary disease noted. Osseous structures are intact. Impression: NG tube in satisfactory position. Reviewed, dictated and finalized at [facility]. Impression: NG tube in satisfactory position.
--- NOTE | ~2023-07-07 | XR_ITS ---
Portable chest x-ray Comparison: 07/07/2023 Clinical History: Shortness of breath Findings: There is mild bibasilar haziness, right worse than left. No definite pleural effusion or p neumothorax. Cardiomediastinal silhouette is stable. Bones and soft tissues are unremarkable. Impression: Probable mild bibasilar pulmonary edema/atelectasis. Correlate clinically for infection. Stable cardiomegaly. Reviewed, dictated and finalized at location . Impression: Probable mild bibasilar pulmonary edema/atelectasis. Correlate clinically for i nfection. Stable cardiomegaly.
--- NOTE | 2023-07-07 09:19 | ECG_ITS ---
Measurements Intervals [place] Rate: 153 P: [place]: 0 QRS: 42 QRSD: 94 T: 158 QT: 303 QTc: 485 Interpretive Statements ATRIAL FLUTTER/TACHYCARDIA WITH RAPID VENTRICULAR RESPONSE CANNOT RULE OUT sEPTAL MYOCARDIAL INFARCTION , OF INDETERMINATE AGE [40+ ms Q WAVE IN V1/V2] ST T-WAVE ABNORMALITY CONSIDER MYOCARDIAL ISCHEMIA ANTEROLATERAL LEADS ABNORMAL ECG COMPARED TO ECG 07/07/2023 08:28:35 MYOCARDIAL INFARCT FINDING NOW PRESENT Electronically Signed On 07-07-2023 18:27:12 CDT by Michael Yuan M.D.
[2023-07-07] MEDS: ASPIRIN 81 MG CHEWABLE TABLET 324 MG PO (09:22)
--- NOTE | 2023-07-07 09:22 | ED.CHESTPAIN ---
HPI - Chest Pain General Chief Complaint: Chest Pain Stated Complaint: cp & sob History of Present Illness HPI narrative: 53-year-old male with history of smoking hypertension high cholesterol presented the emergency department for evaluation of intermittent chest pain. Patient states he has been having chest pain worsening at nighttime over the last few months. Patient is scheduled to have a stress test and did have an echocardiogram 2 weeks ago. Patient presented to the urgent care for complaint of worsening chest pain and was found to have a heart rate in the 150s it appeared to be in a flutter. Initial EKG did show some rate related ST changes that was concerning for [place]. Upon arrival to the ED patient's EKG does not appear to be a STEMI and patient denies any complaint of chest pain at this time. Patient's EKG did show a flutter with a heart rate of 154. Patient's last echo did show an EF of 25-30. For this reason patient is started on amiodarone for rate control. Related Data Home Medications Medication Instructions Recorded Confirmed insulin glargine 100 unit/mL (3 20 unit subcut Q12H 07/07/23 07/07/23 mL) subcutaneous pen (Lantus Solostar U-100 Insulin) Allergies Allergy/AdvReac Type Severity Reaction Status Date / Time No Known Allergies Allergy Verified 07/07/23 15:02 Review of Systems Review of Systems: All systems reviewed & are unremarkable except as noted in HPI and below PMFSH Past Medical History Medical History Diabetes HLD (hyperlipidemia) HTN (hypertension) Nasal fracture Noncompliance with diabetes treatment Surgical History Surgical History No history of previous surgery Family History Family History Mother Hx of heart artery stent Pacemaker Acute myocardial infarction Congestive heart failure Hypertension Breast cancer Grandparent History of quadruple bypass Primary cancer of bone marrow Hypertension Sibling Chronic obstructive pulmonary disease Social History Social History Social History: Caffeine-soda Smoking packs per day: 1 Smoking cigarettes per day: 20.0 Years smoked: 40 Smoking pack-years: 40.00 Smoking status: Current every day smoker Tobacco type: cigarettes Second hand tobacco smoke exposure: Yes Alcohol intake: never Alcohol use details: quit 3 yrs ago Lack of Transportation: No Lack of Food: Never True Current Housing: I Have Housing Concerned About Future Housing: No Difficulty Paying Gas/Electric Bills: No Difficulty Paying for Meds: No Currently Unemployed: No Education: High School Diploma/GED Difficulty w/ Childcare or Family Care: No Gender identity (if verbalized by the patient): Male Spiritual care concerns: No Exam Narrative: APPEARANCE: Well appearing, no pain, no distress, well-nourished. HEAD: normocephalic, atraumatic. EYES: PERRLA/EOMI, conjunctivae clear. NOSE: Normal no drainage EARS:TMS clear with good light reflex. THROAT: Pharynx clear, no exudate. NECK: Supple. No adenopathy, no masses. RESPIRATORY: Airway patent, respirations nonlabored. Clear to auscultation bilaterally, no rales, rhonchi, wheezing. CARDIOVASCULAR: Regular rate and rhythm without murmurs rubs or gallops. ABDOMINAL: Soft, nontender, nondistended, normal bowel sounds MUSCULOSKELETAL: Moves all extremities. Strength/ROM intact, No edema, No calf tenderness. NEURO: Alert. Cranial nerves II through XII intact. Grossly intact SKIN: Warm, dry. Normal Color Course Course Emergency Course: 53-year-old male present to the emergency department for evaluation of rapid heart rate. Patient's heart rate was 154 and patient was started on amiodarone due to his poor ejection fraction. Patient did h
[2023-07-07] MEDS: AMIODARONE 150 MG/D5W 100 ML 150 MG/100 ML BAG 600 MG IV CONT (09:38)
[2023-07-07 09:45] LABS: Basophils Percent Auto 0.4 % (0.2-1.2); Eosinophils Absolute Auto 0.1 K/mm3 (0-0.3); Eosinophils Percent Auto 1.1 % (0-4.4); Hematocrit 44.3 % (42.0-52.0); Hemoglobin 14.4 g/dL (14.0-18.0); Immature Granulocyte Absolute 0.04 K/mm3 (0.00-0.031); Immature Granulocyte Percent A 0.4 % (0-0.5); Lymphocytes Absolute Auto 2.17 K/mm3 (0.9-3.2); Lymphocytes Percent Auto 19.3 % (18.3-44.2); Mean Corpuscular HGB Conc 32.5 g/dl (32-36); Mean Corpuscular Hemoglobin 31.4 pg (26-34); Mean Corpuscular Volume 96.5 fl (80-100); Mean Platelet Volume 12.5 fl (7.4-10.4); Monocytes Absolute Auto 1.3 K/mm3 (0.1-0.6); Monocytes Percent Auto 11.8 % (2.6-8.5); Neutrophils Absolute Auto 7.6 K/mm3 (1.3-6.7); Platelet Count Result 167 k/mm3 (150-375); Red Blood Count 4.59 M/mm3 (4.6-6.20); Red Cell Distribution Width 13.7 % (11.5-14.5); White Blood Count 11.3 K/mm3 (4.5-10.0)
[2023-07-07 09:55] LABS: Partial Thromboplastin Time 26.1 SECONDS (22.3-36.8); Prothrombin Time 13.7 Seconds (11.1-14.7)
[2023-07-07 09:56] LABS: Alanine Aminotransferase 57 U/L (6-50); Albumin Level 4.2 g/dL (3.5-5.1); Alkaline Phosphatase 96 U/L (38-126); Anion Gap 8 mmol/L (8-16); Aspartate Amino Transferase 43 U/L (17-59); Bilirubin,Total 0.8 mg/dL (0.2-1.3); Blood Urea Nitrogen 12 mg/dL (9-20); Carbon Dioxide 27 mmol/L (22-30); Chloride 100 mmol/L (98-107); Estimated Glomerular Filt Rate > 60; Glucose 98 mg/dL (65-110); Lipase 40 U/L (23-300); Potassium 3.9 mmol/L (3.4-5.0); Sodium 135 mmol/L (137-145)
[2023-07-07 10:09] LABS: Troponin I 0.427 ng/mL (0.000-0.034)
[2023-07-07] MEDS: HEPARIN SODIUM 5,000 UNITS/ML VIAL 4000 UNITS IV PUSH ×2 (10:15→17:51)
[2023-07-07 10:20] LABS: Influenza A QL RT-PCR Negative (Negative); Influenza B QL RT-PCR Negative (Negative); RSV RNA, RT-PCR Negative (Negative); SARS-CoV-2 RNA PCR Negative (Negative)
[2023-07-07] MEDS: AMIODARONE 360 MG/D5W 200 ML 360 MG/200 ML BAG 33.33 MG IV CONT ×2 (10:30→16:30)
[2023-07-07] MEDS: HEPARIN SOD/D5W 100 UNITS/ML 25,000 UNITS/250 ML BAG 10 UNITS IV CONT (10:53)
[2023-07-07 10:56] LABS: NT Pro B Type Natriuretic Pept 1070 pg/mL (19.9-100)
[2023-07-07] MEDS: METOPROLOL TARTRATE INJ 5 MG/5 ML VIAL IV PUSH ×2 (12:21→15:36)
--- NOTE | 2023-07-07 12:54 | PC.NURSE ---
EDP states to hold second loading dose of amio, Pt denies chest pain. A&OX4. ST on monitor.
[2023-07-07] MEDS: SODIUM CHLORIDE 0.9% IV 500 ML 999 ML IV CONT (13:08)
[2023-07-07 13:12] LABS: Troponin I 0.439 ng/mL (0.000-0.034)
--- NOTE | 2023-07-07 14:49 | ADMGEN ---
This patient, Chinedu Butterfield, was admitted to IMU Room 200-01. Patient/family oriented to hospital policies and general routines including ID bracelet, bed and alarms, visiting hours, pain management, procedures, bathroom and other care routines, personal items, smoking policy, room service/diet, and visiting hours. Information on how to activate the Rapid Response Team has been discussed. Patient/Family are encouraged to report perceived risks to care and to ask questions if they do not understand what they are told or what they should do.
--- NOTE | 2023-07-07 15:15 | PC.NURSE ---
Notified Dr. Yuan of patient's status and vital signs. New orders received
--- NOTE | 2023-07-07 15:24 | PM.CNCAR ---
Assessment and Plan Assessment and plan (1) Atrial flutter with rapid ventricular response: Code(s): I48.92 - Unspecified atrial flutter Status: Acute Assessment and Plan: New diagnosis atrial flutter with RVR duration unknown symptoms on patient description suggestive at least 1 month intermittently. Refractory to IV amiodarone improved with IV metoprolol for rate control. Patient high risk for sedation electrical cardioversion at this time without the assistance of Anesthesiology. Clinically patient appears be in mild decompensated heart failure along with high clinical suspicion for COPD and untreated JOSE. Patient would require JOSH guided cardioversion in attempts restore sinus rhythm with Anesthesiology a concern he may suffer acute severe respiratory failure requiring intubation and mechanical ventilatory support. Discussed at length with the patient family. They verbalized understanding. Will continue with rate control strategy as he tolerates. Will give IV metoprolol 5 mg IV x1 and initiate metoprolol tartrate 50 mg p.o. every 8 hours. If heart rate remains poorly controlled resume IV amiodarone as BP permits. Continue systemic anticoagulation to reduce risk for embolic stroke. Discussed pathophysiology, management strategy including medications and cardioversion at length. We discussed stroke risk over time and concern for possible tachycardia induced cardiomyopathy. Recommendation to follow based on patient's tolerance of therapy. Monitor renal function electrolytes closely. Continue telemetry. As discussed at length, patient is very complicated with multiple comorbidities. We also discussed risk for potential life-threatening and or fatal ventricular arrhythmias given severe LV systolic dysfunction related to ventricular tachycardia and ventricular fibrillation. Continue telemetry monitoring. Patient may require electrophysiology management which is not available at this institution. Depending on patient response to therapy further recommendation with regards to transfer to outside facility if necessary. (2) Elevated troponin: Code(s): R79.89 - Other specified abnormal findings of blood chemistry Status: Acute Assessment and Plan: Flat mild troponin elevation most likely type 2 infarction secondary to demand ischemia related to severe LV systolic dysfunction, tachyarrhythmia with atrial flutter with RVR. Cannot exclude underlying CAD given multiple risk factors for atherosclerotic disease including hypertension, diabetes mellitus, hyperlipidemia, tobacco abuse. We discuss ischemic workup including based angiography. However, proceed with noninvasive ischemic evaluation in appropriate given patient's current respiratory distress and atrial flutter with RVR. Patient is unable to lie flat with invasive angiography. If cardioversion pursued would not want to interrupt systemic anticoagulation due to increased risk for stroke, however, if benefit outweighs risk this may be necessary but we would attempt to avoid if possible for least the next 3-4 weeks. Continue trend. Aspirin 81 mg daily. Check lipid panel. There is no clear evidence patient is suffering from acute coronary syndrome and/or plaque rupture at this time. (3) Cardiomyopathy: Qualifiers: Cardiomyopathy type: dilated Qualified Code(s): I42.0 - Dilated cardiomyopathy Code(s): I42.9 - Cardiomyopathy, unspecified Status: Acute Assessment and Plan: Etiology unknown. We discussed consideration including nonischemic versus ischemic cardiomyopathy. EF severely reduced 25-30% by echocardiogram 05/2023 which is a new diagnosis. Ideally, would recommend initiation of Jardiance 10 mg daily, Entresto 24/26 mg twice daily, spironolactone 25 mg daily, beta-darío therapy and diuretics. However, given patient's relative hypotension it is unclear if he will tolerate majority of this therapy. Preference would be to initia
[2023-07-07] MEDS: METOPROLOL TARTRATE 25 MG TABLET PO ×2 (15:52→21:30)
[2023-07-07 16:09] LABS: Troponin I 0.382 ng/mL (0.000-0.034)
--- NOTE | 2023-07-07 16:17 | PC.NURSE ---
Dr. Yuan at bedside discussing plan of care with pt and pt's family. Pt's HR remains in the 140's. Pt received 25mg PO Metoprolol with BP of 112/70. New orders to start Amiodarone gtt with no bolus, recheck BP 30 minutes after resuming drip. If SBP >95, give 20mg IVP Lasix x1. Start pt on BiPAP and notify medical provider of Cardiology recommendations.
[2023-07-07] MEDS: FUROSEMIDE INJ 40 MG/4 ML VIAL 20 MG IV PUSH (17:18)
[2023-07-07 17:44] LABS: Glucose Point of Care 173 mg/dl (65-105)
[2023-07-07 17:45] LABS: Partial Thromboplastin Time 30.8 SECONDS (22.3-36.8)
--- NOTE | 2023-07-07 17:53 | PM.IMHP ---
H&P: HPI History of Present Illness Date/Time: 07/07/23 17:53 Chief Complaint: SOB, Palpitations Narrative: 53-year-old male presents here with intermittent chest pain and orthopnea with PMH of diabetes, HTN, HLD, and recent diagnosis of Heart Failure with EF of 25-30% on 06/15/23. Patient reports increased shortness of breath over the past 2 months with lying flat at night and cool air. When patient becomes short of breath he reports feeling like his heart is beating very fast. Tachycardia sensation resolves when shortness of breath resolves. Has also been experiencing intermittent chest discomfort that increases with inspiration. Which is what prompted him to seek treatment today. Initially seen at a local urgent care. There they found a heart rate of 150, EKG showed atrial flutter. no associated nausea, diaphoresis, increased cough, fever. Chest discomfort has currently resolved. was seen at his primary office on 04/23/2023 for chest pain at rest and with exertion. He described it as substernal and burning. EKG at that time showed left atrial enlargement or conduction delay with nonspecific T-wave abnormalities. Patient had outpatient echo performed on 06/15/2023 that showed an EF of 20-25%. Patient was scheduled for a catheterization that has not been completed. Not currently on a diuretic. Patient's significant other also discussed that she and the patient had both been having intermittent headaches and nausea after moving into their new rental. Rental had not been occupied for the last 6 years and patient's significant other reports smelling gas intermittently over the past month. Headache and nausea would resolve when they went out onto the front porch. No CO detector in home. Review of Systems Review of Systems: All systems reviewed & are unremarkable except as noted in HPI and below [facility] Past Medical History Medical History (Updated 07/07/23 @ 19:57 by Apoorva Rice APRN) CHF (congestive heart failure) Diabetes HLD (hyperlipidemia) HTN (hypertension) Nasal fracture Noncompliance with diabetes treatment Surgical History Surgical History No history of previous surgery Family History Family History Mother Hx of heart artery stent Pacemaker Acute myocardial infarction Congestive heart failure Hypertension Breast cancer Grandparent History of quadruple bypass Primary cancer of bone marrow Hypertension Sibling Chronic obstructive pulmonary disease Social History Social History (Updated 07/07/23 @ 20:47 by Apoorva Rice, MEDIA CENTER ASSISTANT) Social History: Currently lives in an rental with his girlfriend. Surrogate decision maker: Ottoniel Butterfield, son. Code Status: Full Code. Caffeine-soda Smoking packs per day: 2 Smoking cigarettes per day: 40.0 Years smoked: 40 Smoking pack-years: 80.00 Smoking status: Current every day smoker Tobacco type: cigarettes Second hand tobacco smoke exposure: Yes Alcohol intake: never Alcohol use details: quit 3 yrs ago Lack of Transportation: No Lack of Food: Never True Current Housing: I Have Housing Concerned About Future Housing: No Difficulty Paying Gas/Electric Bills: No Difficulty Paying for Meds: No Currently Unemployed: No Education: High School Diploma/GED Difficulty w/ Childcare or Family Care: No Gender identity (if verbalized by the patient): Male Spiritual care concerns: No Meds Home Medications and Allergies Home Medications Medication Instructions Recorded Confirmed Type blood sugar diagnostic (Blood #50 ea 06/09/22 07/07/23 Rx Glucose Test strips) blood-glucose meter (Blood Glucose #1 ea 06/09/22 07/07/23 Rx Monitoring kit) lancets 33 gauge (BD Ultra Fine #100 ea 06/09/22 07/07/23 Rx Lancets) atorvastatin 40 mg tablet 40 mg PO QHS #90 tabs 05/03/23 07/07/23
[2023-07-07 18:00] LABS: Alveolar/Arterial O2 Gradient 109.9 mmHg; Base Excess ABG -0.4 mEq/l (+/-2.0); Fractional Inspired Oxygen 40 %; HCO3 ABG 23.9 mEq/l (22.0-26.0); Methemoglobin ABG 0.4 %THb (0-1.5); Oxygen Content ABG 20.2 %vol (16.0-22.0); Oxygen Saturation ABG 98.7 % (95.0-100.0); Oxyhemoglobin 96.7 % THb (90.0-100.0); PCO2 ABG 38.1 mmHg (35.0-45.0); PO2 ABG 131.5 mmHg (80.0-100.0); PO2 FiO2 Ratio Arterial Blood 3.29 %; Reduced Hemoglobin 1.9 %THb (0-5.0); Total Hemoglobin 14.7 g/dL (12.0-18.0); pH ABG 7.415 (7.350-7.450)
[2023-07-07 18:04] LABS: Device NON-INVASIVE VENT; Site Drawn LEFT BRACHIAL
[2023-07-07 18:05] LABS: Non-Invasive Expiratory Pressure 6 CMH2O; Non-Invasive Inspiratory Pressure 14 CMH2O; Non-Invasive Vent Rate 12 /MIN
--- NOTE | 2023-07-07 18:57 | ECG_ITS ---
Measurements Intervals [place] Rate: 126 P: 74 [place]: 271 QRS: 48 QRSD: 100 T: 189 QT: 355 QTc: 515 Interpretive Statements ATRIAL FLUTTER WITH VARIABLE AV BLOCK AND RAPID VENTRICULAR RESPONSE BASELINE ARTIFACT SEPTAL MYOCARDIAL INFARCTION [40+ ms Q WAVE IN V1/V2], OF INDETERMINATE AGE ST AND T-WAVE ABNORMALITY, CONSIDER MYOCARDIAL ISCHEMIA ABNORMAL ECG COMPARED TO ECG 07/07/2023 09:15:58 NO SIGNIFICANT CHANGE COMPARED TO PRIOR TRACING Electronically Signed On 07-08-2023 17:09:24 CDT by Michael Yuan M.D.
--- NOTE | 2023-07-07 18:58 | PC.NURSE ---
Addendum entered by Tanya Whitaker RN 07/07/23 19:19: Apoorva Rice NP notified of pt's heart rate sustaining in the 140's on the Amiodarone drip Original Note: Pt ripped BiPAP off, alarmed sounded, RN to room. Pt stating that he was dizzy and lightheaded. I sat on the side of the bed to pee. As I was finishing I got lightheaded. I'm now sweating and I've not sweated at all while I'm here. I'm starting to feel better now; I'm just now. BP 92/66 R 32. Apoorva Rice NP notified. New orders for 12 lead EKG, and I will notify Dr. Yuan of current situation and get his opinion
[2023-07-07 19:38] LABS: D Dimer 0.69 ug/mL (<0.48)
[2023-07-07] MEDS: LEVALBUTEROL NEB 1.25 MG/3 ML INHALATION (20:30)
[2023-07-07 21:08] LABS: Glucose Point of Care 193 mg/dl (65-105)
[2023-07-07] MEDS: ATORVASTATIN 40 MG TABLET PO (21:30)
[2023-07-07] MEDS: INSULIN GLARGINE (*BKC) 100 UNITS/ML 20 UNITS SUB-Q (21:31)
[2023-07-07] MEDS: MUPIROCIN 2% OINT 22 GM TUBE 1 APPLIC TOPICAL (21:34)
--- NOTE | 2023-07-07 23:06 | PCRCNOTE ---
Apnea link ordered on patient tonight. Patient is unable to come off of bipap due to work of breathing. Apnea link to be attempted when patient is breathing better.
[2023-07-08] VITALS (48 sets, daily range): BP systolic 65–226; BP diastolic 39–183; PULSE 72–120; RESP 18–37; TEMP 36.6–37; O2SAT 89–100; BMI 37.5
--- NOTE | 2023-07-08 | ECHO_ITS ---
Patient Info Name: Chinedu Butterfield Age: 53 years : 1970 Gender: Male Ht: 71 in Wt: 269 lbs BSA: 2.52 m2 HR: 78 bpm BP: 83 / 35 mmHg Heart Rhythm: Sinus Rhythm Technical Quality: Fair Exam Date: 07/08/2023 1:39 PM Exam Location: [facility] Pulmonary Exam Room: ICU4 Patient Status: Inpatient Admit Date: 07/08/2023 Staff Ordering Physician: Michael Yuan MD Car Bracer: Tenisha Vann RDCS Attending Provider: Akilah Law DO Referring Physician: Lissy HENNESSY; Exam Type: CA echo dop color flow w con Study Info Indications - S/P CATH IABP - CARDIOGENIC SHOCK Complete two-dimensional, color flow and Doppler transthoracic echocardiogram is performed with contrast to opacify the left ventricle and to improve the deliniation of the left ventricle endocardial borders. Contrast/Agitated Saline Contrast/Ag. Saline: Definity Amount: 2.00 ml Administered By: Tenisha Vann [facility] Existing IV Access: Yes IV Access Condition: patent with no signs of infiltration Summary 1. Technically difficult study with limited views. Definity contrast administered. 2. Left ventricular chamber dimension is moderately enlarged. 3. Left ventricular systolic function is severely reduced, estimated at 25-30%. 4. There is mildly increased left ventricular wall thickness. 5. The left ventricular diastolic function is grade III diastolic dysfunction. 6. Left atrial chamber dimension is severely enlarged. 7. Right atrial chamber dimension is severely enlarged. 8. There is no aortic valve stenosis. 9. There is mild to moderate mitral valve regurgitation. 10. There is mild tricuspid valve regurgitation. 11. No pulmonary hypertension, estimated pulmonary arterial systolic pressure is 31 mmHg. 12. Mildly dilated inferior vena cava with <50% collapse upon inspiration consistent with significantly elevated right atrial pressure, 15 mmHg. Left Ventricle Left ventricular chamber dimension is moderately enlarged. Left ventricular systolic function is severely reduced, estimated at 25-30%. There is mildly increased left ventricular wall thickness. The left ventricular diastolic function is grade III diastolic dysfunction. Technically difficult study with limited views. Definity contrast administered. Right Ventricle Right ventricular chamber dimension is normal. Right ventricular systolic function is reduced. Left Atria Left atrial chamber dimension is severely enlarged. Right Atria Right atrial chamber dimension is severely enlarged. Aortic Valve The aortic valve is not well visualized. There is mild aortic valve sclerosis. There is no aortic valve stenosis. There is no aortic valve regurgitation. Pulmonic Valve The pulmonic valve is not well visualized. There is trace pulmonic regurgitation. Mitral Valve The mitral valve has normal leaflets. There is mild to moderate mitral valve regurgitation. The mitral valve annulus is moderately calcified. Tricuspid Valve The tricuspid valve leaflets are normal. There is mild tricuspid valve regurgitation. No pulmonary hypertension, estimated pulmonary arterial systolic pressure is 31 mmHg. Pericardium/Pleural The pericardium appears normal. There is trivial pericardial effusion. Inferior Vena Cava Mildly dilated inferior vena cava with <50% collapse upon inspiration consistent with significantly elevated right atrial pressure, 15 mmHg. Aorta The aortic root size at the sinus of Valsalva is normal. There is mild aortic atherosclerosis. Left
[2023-07-08] MEDS: LORazepam (*CRX) 0.5 MG TABLET PO (01:01)
[2023-07-08] MEDS: LEVALBUTEROL NEB 1.25 MG/3 ML INHALATION ×2 (01:10→14:39)
[2023-07-08] MEDS: ACETAMINOPHEN 325 MG TABLET 650 MG PO (01:12)
[2023-07-08 01:49] LABS: Base Excess ABG -5.7 mEq/l (+/-2.0); Carboxyhemoglobin 0.4 % THb (0-2.0); Fractional Inspired Oxygen 32 %; HCO3 ABG 19.9 mEq/l (22.0-26.0); Methemoglobin ABG 0.3 %THb (0-1.5); Oxygen Content ABG 17.4 %vol (16.0-22.0); PCO2 ABG 39.3 mmHg (35.0-45.0); PO2 FiO2 Ratio Arterial Blood 1.54 %; Reduced Hemoglobin 20.3 %THb (0-5.0); Total Hemoglobin 15.7 g/dL (12.0-18.0); pH ABG 7.322 (7.350-7.450)
[2023-07-08 01:50] LABS: Oxygen Saturation ABG 81.9 % (95.0-100.0); PO2 ABG 49.2 mmHg (80.0-100.0)
[2023-07-08 01:52] LABS: Device NASAL CANNULA; Site Drawn RIGHT BRACHIAL
[2023-07-08] MEDS: MORPHINE SULFATE (*CRX) 2 MG/ML INJ IV PUSH (01:53)
[2023-07-08] MEDS: FUROSEMIDE INJ 40 MG/4 ML VIAL IV PUSH (01:57)
[2023-07-08 02:01] LABS: Hematocrit 48.1 % (42.0-52.0); Hemoglobin 14.7 g/dL (14.0-18.0); Mean Corpuscular HGB Conc 30.6 g/dl (32-36); Mean Corpuscular Hemoglobin 30.9 pg (26-34); Mean Corpuscular Volume 101.3 fl (80-100); Mean Platelet Volume 12.5 fl (7.4-10.4); Platelet Count Result 189 k/mm3 (150-375); Red Blood Count 4.75 M/mm3 (4.6-6.20); Red Cell Distribution Width 13.9 % (11.5-14.5); White Blood Count 15.4 K/mm3 (4.5-10.0)
[2023-07-08 02:19] LABS: Partial Thromboplastin Time 39.5 SECONDS (22.3-36.8)
[2023-07-08 02:20] LABS: Anion Gap 15 mmol/L (8-16); Blood Urea Nitrogen 23 mg/dL (9-20); Calcium 8.9 mg/dL (8.4-10.2); Carbon Dioxide 18 mmol/L (22-30); Chloride 97 mmol/L (98-107); Estimated CRCL calculation 52 ml/min; Estimated Glomerular Filt Rate 35; Glucose 187 mg/dL (65-110); Potassium 4.3 mmol/L (3.4-5.0); Sodium 130 mmol/L (137-145)
--- NOTE | 2023-07-08 02:26 | P.PNCROSS_ITS ---
Event Note Event Note Event Note: QUANTITATIVE SOFTWARE ENGINEER was called to patient's room due to respiratory distress. Objective: Patient is sitting by the edge of the bed in respiratory distress, tachypneic, cyanotic limbs. Subjective: I'm feel sick General: Ill appearing acutely tachypneic on oxygen by nasal cannula HEENT: Atraumatic normocephalic PERRLA EOM intact neck is supple no JVD no lymphadenopathies Respiratory: Crackles bilateral bases Cardiovascular: irregularly irregular rhythm Abdomen: Is distended and firm, no hepatosplenomegaly. Extremities: Cyanotic Central nervous system: Awake alert oriented x3 moves all extremities purposely skin: Generalized pallor, cyanosis at the limbs. Assessment and plan: 1. Acute respiratory failure: BiPAP, discussed ventilator support as well patient agreeable to it. Will transfer to ICU ABG reviewed, chest x-ray reviewed. CBC, BMP, magnesium, phosphorus, lactic a lachelle, troponins x1, stat 2. Acute pulmonary edema: Lasix 40 IV push stat, morphine 2 mg IV push times ones plus Ativan 1 mg IV push once Will place Abarca
[2023-07-08 02:27] LABS: Troponin I 0.583 ng/mL (0.000-0.034)
[2023-07-08] MEDS: HEPARIN SODIUM 5,000 UNITS/ML VIAL 4000 UNITS IV PUSH ×2 (03:05→15:22)
[2023-07-08] MEDS: LORazepam INJ (*CRX) 2 MG/ML VIAL 1 MG IV PUSH (03:09)
[2023-07-08 04:54] LABS: Basophils Absolute Auto 0.1 K/mm3 (0.0-0.1); Basophils Percent Auto 0.3 % (0.2-1.2); Eosinophils Percent Auto 0.1 % (0-4.4); Hematocrit 47.2 % (42.0-52.0); Immature Granulocyte Absolute 0.16 K/mm3 (0.00-0.031); Immature Granulocyte Percent A 0.9 % (0-0.5); Lymphocytes Absolute Auto 1.96 K/mm3 (0.9-3.2); Lymphocytes Percent Auto 10.6 % (18.3-44.2); Mean Corpuscular HGB Conc 31.8 g/dl (32-36); Mean Corpuscular Volume 97.5 fl (80-100); Mean Platelet Volume 12.8 fl (7.4-10.4); Monocytes Absolute Auto 1.9 K/mm3 (0.1-0.6); Monocytes Percent Auto 10.1 % (2.6-8.5); Neutrophils Absolute Auto 14.5 K/mm3 (1.3-6.7); Platelet Count Result 177 k/mm3 (150-375); Red Blood Count 4.84 M/mm3 (4.6-6.20); Red Cell Distribution Width 13.8 % (11.5-14.5); White Blood Count 18.6 K/mm3 (4.5-10.0)
[2023-07-08 04:59] LABS: Reflex Lactic Acid Yes or No Add Lactic
[2023-07-08 05:09] LABS: Alanine Aminotransferase 560 U/L (6-50); Alkaline Phosphatase 92 U/L (38-126); Anion Gap 12 mmol/L (8-16); Aspartate Amino Transferase 556 U/L (17-59); Bilirubin,Total 0.7 mg/dL (0.2-1.3); Blood Urea Nitrogen 25 mg/dL (9-20); Calcium 8.9 mg/dL (8.4-10.2); Carbon Dioxide 18 mmol/L (22-30); Chloride 100 mmol/L (98-107); Estimated CRCL calculation 46 ml/min; Estimated Glomerular Filt Rate 30; Glucose 167 mg/dL (65-110); Potassium 5.4 mmol/L (3.4-5.0); Sodium 130 mmol/L (137-145)
[2023-07-08] MEDS: ETOMIDATE 20 MG/10 ML AMPUL 15 MG IV PUSH (05:47)
--- NOTE | 2023-07-08 06:21 | PC.NURSE ---
07/08/23 Patient's mother called out for help. RN to bedside. Patient sitting up on side of bed with tachypnea, labored respirations, and shortness of breath. Dusky in color. Patient on RA at this time. Patient's mother reports he removed BIPAP due to episode of nausea. Patient has been intolerant of bipap for the entirety of this shift. 3L/nc was placed on patient. Patient reports he couldn't breathe . 07/08/23 Rapid response called. Hospitalist, Dr Garnica at bedside. Orders provided. Medications administered. See report. 07/08/23 Patient with further complaints of shortness of breath and labored respirations. Dr Garnica made aware. Orders to transfer patient to ICU. Report given to JUVE March.
[2023-07-08] MEDS: FENTANYL 2,500MCG/NS250ML(*CRX 2,500 MCG/250 ML BAG IV CONT (07:09)
[2023-07-08] MEDS: MIDAZOLAM 100MG/NS 100ML(*CRX) 100 MG/100 ML BAG IV CONT (07:11)
[2023-07-08] MEDS: AMIODARONE 360 MG/D5W 200 ML 360 MG/200 ML BAG 33.33 MG IV CONT (07:15)
[2023-07-08 07:29] LABS: Glucose Point of Care 163 mg/dl (65-105)
[2023-07-08] MEDS: NOREPINEPHRINE 8 MG/D5W 250 ML 8 MG/250 ML BAG 9.38 MG IV CONT (07:30)
--- NOTE | 2023-07-08 07:33 | PC.NURSE ---
Addendum entered by Wander Sanderson RN 07/08/23 07:38: pt trans to ICU 0340 for closer observation maintained on bipap. pt following commands but anxious. after elective intubation pt became bradycardic and no pulse code called at 0550 seee code blue sheet Original Note: pt has been anxious off and on through out the night since rapid response. RR 20-30 O2 sats labile with poor pleth HR afib rates 120-[address] gillette aware and decided to electively intubate patient at 0545
[2023-07-08] MEDS: RAPID SEQUENCE INTUBATION KIT 1 EACH (08:13)
[2023-07-08] MEDS: ROCURONIUM BROMIDE 50 MG/5 ML VIAL 80 MG IV PUSH (08:20)
[2023-07-08 08:42] LABS: Alveolar/Arterial O2 Gradient 518.6 mmHg; Base Excess ABG -9.4 mEq/l (+/-2.0); Carboxyhemoglobin 0.6 % THb (0-2.0); Fractional Inspired Oxygen 90 %; HCO3 ABG 15.9 mEq/l (22.0-26.0); Methemoglobin ABG 0.3 %THb (0-1.5); Oxygen Content ABG 23.1 %vol (16.0-22.0); Oxygen Saturation ABG 95.9 % (95.0-100.0); Oxyhemoglobin 94.5 % THb (90.0-100.0); PCO2 ABG 33.9 mmHg (35.0-45.0); PO2 ABG 88.4 mmHg (80.0-100.0); PO2 FiO2 Ratio Arterial Blood 0.98 %; Reduced Hemoglobin 4.6 %THb (0-5.0); Total Hemoglobin 17.4 g/dL (12.0-18.0)
[2023-07-08 08:43] LABS: Device VENTILATOR; Modified Allen's Test Pass; Site Drawn LEFT RADIAL
[2023-07-08 08:44] LABS: Arterial Blood Gas PEEP 8 cmH2O; Arterial Blood Gas Tidal Volume 450 ml; Arterial Blood Gas Vent Mode CMV; Arterial Blood Gas Ventilator rate 22 /MIN
[2023-07-08] MEDS: ALBUTEROL SULFATE NEB 2.5 MG/3 ML INH 10 MG INHALATION (08:51)
[2023-07-08] MEDS: SODIUM ZIRCONIUM CYCLOSILICATE 10 GM POWD.PACK PO (09:14)
[2023-07-08] MEDS: MINERAL OIL/WHITE PETROLATUM OINTMENT 1 APPLIC EACH EYE (09:14)
[2023-07-08] MEDS: SODIUM BICARBONATE 8.4% 50 MEQ/50 ML SYRINGE 100 MEQ IV PUSH (09:15)
[2023-07-08] MEDS: HEPARIN SOD/D5W 100 UNITS/ML 25,000 UNITS/250 ML BAG 18 UNITS IV CONT (09:16)
[2023-07-08] MEDS: INSULIN HUMAN REGULAR (*BKC) 100 UNITS/ML 10 UNITS IV PUSH (09:16)
[2023-07-08] MEDS: DEXTROSE 50% 25 GM/50 ML SYRINGE IV PUSH (09:16)
[2023-07-08] MEDS: MUPIROCIN 2% OINT 22 GM TUBE 1 APPLIC TOPICAL (09:17)
[2023-07-08] MEDS: MIDAZOLAM HCL (*CRX) 2 MG/2 ML VIAL IV PUSH (09:50)
--- NOTE | 2023-07-08 09:51 | WPDCNINT ---
Assessment and Plan Assessment and plan (1) Shock: Code(s): R57.9 - Shock, unspecified Status: Acute Assessment and Plan: Most likely cardiogenic versus septic shock. -patient with PEA cardiac arrest requiring intubation, -elevated lactic acid, acute kidney injury, multiorgan failure -was started on Jordon-Synephrine and Levophed was added. Maintain MAP > 65 mmHg for adequate end organ perfusion -Jordon-Synephrine has been discontinued -discussed with cardiology regarding patient's cardiomyopathy, diastolic dysfunction, systolic dysfunction, moderate mitral valve regurgitation, cardiomyopathy. Ischemic evaluation is warranted. Cardiology to take patient for angiogram -patient is at risk for ventricular arrhythmias given severe cardiomyopathy (2) Acute respiratory failure: Qualifiers: Respiratory failure complication: unspecified whether with hypoxia or hypercapnia Qualified Code(s): J96.00 - Acute respiratory failure, unspecified whether with hypoxia or hypercapnia Code(s): J96.00 - Acute respiratory failure, unspecified whether with hypoxia or hypercapnia Status: Acute Assessment and Plan: Acute respiratory failure likely related to cardiac arrest -chest x-ray shows diffuse bilateral pulmonary edema -patient intubated on 07/08/2023 -currently on CMV mode of ventilation, peep was increased to 10, tidal volumes are decreased to 450 mL to prevent from volume trauma -started on bronchodilators -chest x-ray and ABGs reviewed -sedated with fentanyl and Versed infusion, maintain RASS of 0 to -2 (3) Acute kidney injury: Code(s): N17.9 - Acute kidney failure, unspecified Status: Acute Assessment and Plan: Acute kidney injury likely related from cardiogenic shock, patient also on losartan at home, history of hypertension and diabetes which could be factoring in his renal injury -chest x-ray shows bilateral pulmonary edema, patient did get some Lasix overnight -low urine output, worsening creatinine (0.7 on admission,) -creatinine up to 3.00 -continue monitor urine output, renal function and electrolytes -patient on pressors (4) Cardiomyopathy: Qualifiers: Cardiomyopathy type: dilated Qualified Code(s): I42.0 - Dilated cardiomyopathy Code(s): I42.9 - Cardiomyopathy, unspecified Status: Acute Assessment and Plan: Severe cardiomyopathy could be multifactorial, related to hypertension, diabetes, ischemic cardiomyopathy, related to atrial fib/flutter -cardiology following the patient -patient ultimately will require Jardiance, Entresto, spironolactone, beta-darío and diuretics but currently not a candidate given his state of shock under clinical status. -06/15/2023: Echocardiogram Summary ? 1. Technically suboptimal study due to poor sonographic images. ? 2. Definity contrast administered improved wall motion interpretation. ? 3. Left ventricular chamber dimension is moderately enlarged. ? 4. Left ventricular systolic function is severely globally reduced, estimated at 25-30%. ? 5. There is mild concentric increased left ventricular wall thickness. ? 6. The left ventricular diastolic function is grade II diastolic dysfunction. ? 7. E/e' 18 is elevated. ? 8. Left atrial chamber dimension is moderately enlarged. ? 9. There is mild aortic valve sclerosis. ? 10. There is moderate mitral valve regurgitation. ? 11. Mild pulmonary hypertension, estimated pulmonary arterial systolic pressure is 42 mmHg. (5) Diabetes mellitus type 2, insulin dependent: Code(s): E11.9 - Type 2 diabetes mellitus without complications; Z79.4 - parts counterman (current) use of insulin Status: Acute Assessment and Plan: Continue sliding scale insulin and Accu-Cheks -currently NPO, will hold Lantus (6) Atrial flutter with rapid ventricular response: Code(s): I48.92 - Unspecified atrial flutter Status: Acute Assessment and Plan: Patient with new diagnos
--- NOTE | 2023-07-08 09:58 | ECG_ITS ---
Measurements Intervals [place] Rate: 80 P: 15 WV: 182 QRS: 46 QRSD: 104 T: 92 QT: 398 QTc: 459 Interpretive Statements SINUS RHYTHM ANTEROSEPTAL mYOCARDIAL INFARCTION [40+ ms Q WAVE AND/OR ST/T ABNORMALITY IN V3/V4], OF INDETERMINATE AGE ABNORMAL ECG COMPARED TO ECG 07/07/2023 19:04:29 SINUS RHYTHM NOW PRESENT Electronically Signed On 07-08-2023 17:17:46 CDT by Michael Yuan M.D.
[2023-07-08 09:59] LABS: Partial Thromboplastin Time 53.8 SECONDS (22.3-36.8)
--- NOTE | 2023-07-08 10:47 | PM.CNCAR ---
Assessment and Plan Assessment and plan (1) Cardiogenic shock: Code(s): R57.0 - Cardiogenic shock Status: Acute Assessment and Plan: Status post bradycardic and PEA arrest intubation now requiring pressor support. Given severe LV dysfunction, multiorgan system failure concern for cardiogenic etiology of shock. Although troponin relatively flat given patient's clinical picture and severe LV dysfunction as documented elsewhere given the balance of risk versus benefit feel coronary angiography is necessary to assess whether severe multi vessel CAD is explanation for severe LV dysfunction which case urgent CABG may be necessary. As such, patient would require urgent transfer to outside facility capable of providing services cardiothoracic surgery. However, as I explained to the patient's family and [id number] patient is at extremely high risk even if CABG was required given multiorgan system failure. Explained the very high risk associated coronary angiography given patient's critical illness including risk for bleeding complications, stroke, myocardial infarction, worsening kidney injury requiring dialysis, potentially life-threatening ventricular arrhythmias as well as . Patient's mother and son her [id number] both verbalized understanding of these risk and the relative risks and benefits and agreed patient should proceed with coronary angiography. We also discussed possibility his LV dysfunction may not be related to severe coronary disease in which case this would be considered nonischemic etiology which is equally likely as an ischemic cause despite multiple comorbidities. I also explained high likelihood he may require intra-aortic balloon pump for cardiovascular support, possibility of percutaneous intervention and/or stent implantation. I spent 85 minutes in care of this patient including examination bedside, discussion with colleagues, extensive discussion with family, chart review, medical decision-making, and documentation and review of productive imaging, laboratory studies, ECG and telemetry. (2) Acute respiratory failure: Qualifiers: Respiratory failure complication: unspecified whether with hypoxia or hypercapnia Qualified Code(s): J96.00 - Acute respiratory failure, unspecified whether with hypoxia or hypercapnia Code(s): J96.00 - Acute respiratory failure, unspecified whether with hypoxia or hypercapnia Status: Acute Assessment and Plan: Multifactorial secondary to a flutter with rapid ventricular response as well as probable underlying significant COPD with exacerbation, decompensated heart failure in setting of severe LV dysfunction and probable untreated JOSE. Patient is now status post intubation on mechanical ventilatory support. Management per Critical Care. Cautious diuresis given cardiogenic shock. (3) Cardiomyopathy: Qualifiers: Cardiomyopathy type: dilated Qualified Code(s): I42.0 - Dilated cardiomyopathy Code(s): I42.9 - Cardiomyopathy, unspecified Status: Acute Assessment and Plan: Etiology unknown. We discussed consideration including nonischemic versus ischemic cardiomyopathy. EF severely reduced 25-30% by echocardiogram 05/2023 which is a new diagnosis. Ideally, would recommend initiation of Jardiance 10 mg daily, Entresto 24/26 mg twice daily, spironolactone 25 mg daily, beta-darío therapy and diuretics. However, patient is currently not a candidate for optimize medical therapy given his clinical status. (4) Atrial flutter with rapid ventricular response: Code(s): I48.92 - Unspecified atrial flutter Status: Acute Assessment and Plan: New diagnosis atrial flutter with RVR duration unknown. Currently in sinus rhythm. Due to bradycardic and PEA arrest amiodarone and AV edwin blocking agents have been held. He had been maintained on heparin infusion. Continue close observation, caution with antiarrhythmi
[2023-07-08 11:09] LABS: Anion Gap 17 mmol/L (8-16); Blood Urea Nitrogen 30 mg/dL (9-20); Calcium 8.5 mg/dL (8.4-10.2); Carbon Dioxide 21 mmol/L (22-30); Chloride 94 mmol/L (98-107); Estimated CRCL calculation 35 ml/min; Estimated Glomerular Filt Rate 22; Glucose 200 mg/dL (65-110); Sodium 132 mmol/L (137-145)
--- NOTE | 2023-07-08 11:18 | PC.NURSE ---
Patient transported to cardiac pharmaceutical laboratory technician per cardiac pharmaceutical laboratory technician team at 1110. laboratory assistant team to resume patient care at this time. Bedside report given.
--- NOTE | 2023-07-08 11:34 | WPDMODSED ---
Moderate Sedation Note-Pt Data Patient Data Diagnosis: Cardiogenic shock, cardiomyopathy, elevated troponin Present Complaint: none, intubated sedated Procedure to be performed/Plan: left heart catheterization with selective left and right coronary angiography and left ventricular hemodynamics Allergies Allergy/AdvReac Type Severity Reaction Status Date / Time No Known Allergies Allergy Verified 07/07/23 15:02 Home Medications Medication Instructions Recorded Confirmed Type blood sugar diagnostic (Blood #50 ea 06/09/22 07/07/23 Rx Glucose Test strips) blood-glucose meter (Blood Glucose #1 ea 06/09/22 07/07/23 Rx Monitoring kit) lancets 33 gauge (BD Ultra Fine #100 ea 06/09/22 07/07/23 Rx Lancets) atorvastatin 40 mg tablet 40 mg PO QHS #90 tabs 05/03/23 07/07/23 Rx dulaglutide 0.75 mg/0.5 mL 0.75 mg (0.5 mL) subcut WEEKLY #2 05/03/23 07/07/23 Rx subcutaneous pen injector mL (Trulicity) losartan 50 mg tablet 50 mg PO DAILY #90 tabs 05/03/23 07/07/23 Rx pen needle, diabetic 29 gauge x #100 ea 05/03/23 07/07/23 Rx 1/2 (TRUEplus Pen Needle) doxycycline hyclate 100 mg capsule 100 mg PO DAILY #14 caps 07/01/23 07/07/23 Rx mupirocin 2 % topical ointment 1 applic topical BID #22 grams 07/01/23 07/07/23 Rx insulin glargine 100 unit/mL (3 20 unit subcut Q12H 07/07/23 07/07/23 History mL) subcutaneous pen (Lantus Solostar U-100 Insulin) Current Medications: Active Medications Acetaminophen (Acetaminophen 325 Mg Tablet) 650 mg PO Q4H PRN PRN Reason: Mild Pain (1-3) or Fever Last Admin: 07/08/23 01:12 Dose: 650 mg Atorvastatin Calcium (Atorvastatin 40 Mg Tablet) 40 mg PO QHS JORDAN Last Admin: 07/07/23 21:30 Dose: 40 mg Dextrose (Dextrose 50% 25 Gm/50 Ml Syringe) 12.5 gm IV PUSH PRN PRN; Protocol PRN Reason: Hypoglycemia Glucagon (Glucagon For Inj 1 Mg Vial) 1 mg IM PRN PRN; Protocol PRN Reason: Hypoglycemia Glucose (Glucose Oral Gel 15 Gm Of Glucse In 37.5 Gm Tube) 15 gm PO PRN PRN; Protocol PRN Reason: Hypoglycemia Heparin Sodium (Porcine) (Heparin Sodium 5,000 Units/Ml Vial) 3,500 units IV PUSH PRN PRN PRN Reason: aPTT 55 - 70 seconds Heparin Sodium (Porcine) (Heparin Sodium 5,000 Units/Ml Vial) 4,000 units IV PUSH PRN PRN PRN Reason: aPTT less than 55 seconds Last Admin: 07/08/23 03:05 Dose: 4,000 units Heparin Sodium/Dextrose (Heparin Sodium/D5w 100 Units/Ml) 25,000 units in 250 mls @ 18 mls/hr IV CONT .[id number] JORDAN; Protocol Last Titration: 07/08/23 10:32 Dose: 0 units/hr, 0 mls/hr Dextrose (Dextrose 5% 1,000 Ml) 1,000 mls @ 100 mls/hr IVPB PRN PRN; Protocol PRN Reason: Hypoglycemia Fentanyl Citrate (Fentanyl 2,500 Mcg/Ns 250 Ml) 2,500 mcg in 250 mls @ 2.5 mls/hr IV CONT .Q72H JORDAN; Protocol Last Admin: 07/08/23 07:09 Dose: 25 mcg/hr, 2.5 mls/hr Midazolam HCl (Versed 100 Mg/Ns 100 Ml) 100 mg in 100 mls @ 1 mls/hr IV CONT .Q72H JORDAN; Protocol Last Admin: 07/08/23 07:11 Dose: 1 mg/hr, 1 mls/hr Norepinephrine Bitartrate (Levophed 8 Mg/D5w 250 Ml) 8 mg in 250 mls @ 26.25 mls/hr IV CONT .Q9H32M [facility]; Protocol Last Titration: 07/08/23 10:40 Dose: 18 mcg/min, 33.75 mls/hr Cefepime HCl (Maxipime 1 Gm/Ns 50 Ml) 1 gm in 50 mls @ 100 mls/hr IVPB Q12HR JORDAN Vancomycin HCl (Vancomycin 1,250 Mg/Ns 250 Ml) 1,250 mg in 250 mls @ 166.667 mls/hr IVPB ONCE ONE Stop: 07/08/23 12:29 Vancomycin HCl (Vancomycin 1,250 Mg/Ns 250 Ml) 1,250 mg in 250 mls @ 166.667 mls/hr IVPB ONCE ONE Stop: 07/08/23 13:59 Vancomycin HCl (Vancomycin 1,500 Mg/D5w 500 Ml) 1,500 mg in 500 mls @ 250 mls/hr IVPB Q24H JORDAN Insulin Aspart (Insulin Aspart (*Bkc) 100 Units/Ml) 1 - 2 units SUB-Q HS JORDAN; Protocol Last Admin: 07/07/23 21:20 Dose: Not Given Insulin Aspart (Insulin Aspart (*Bkc) 100 Units/Ml) 2 - 5 units SUB-Q TIDWM JORDAN; Protocol Last Admin: 07/08/23 08:38 Dose: Not Given Insulin Glargine (Insulin Glargine (*Bkc) 100 Units/Ml) 20 units SUB-Q Q12HR JORDAN Last Admin: 07/07/23 21:31 Do
--- NOTE | 2023-07-08 12:43 | WPDCARDPROC ---
Cardiac Cath Procedure Note Date of procedure:: 07/08/23 Performing physician:: Nasir Carmona MD Indication:: cardiogenic shock atrial fib/ atrial flutter, currently in sinus rhythm diabetes obesity prior history of ethanol excess Brief clinical history:: this is a 53-year-old gentleman with diabetes and obesity who presents to the hospital with shortness of breath picture of cardiogenic shock echocardiogram shows very low left ventricular ejection fraction. He has not had overt history of coronary disease in the past. He was in atrial fib / flutter with and was hemodynamically unstable. With medical therapy with amiodarone he converted to sinus rhythm. He remains hypotensive and today has evidence of acute kidney injury. Request for coronary angiography has been made and to consider hemodynamic support Procedure Procedure performed:: coronary angiography placement of intra-aortic balloon pump Sedation/Medication given:: no sedation case start time 113 case end time 12:35 p.m. Access site:: right femoral artery Estimated blood loss:: 20 cc Procedure note:: patient brought to the cardiac catheterization lab in the postabsorptive state where the right femoral triangle was prepped and draped in the usual fashion. Anesthesia was provided with 1% lidocaine infiltrated locally. I was called into the room because of difficulty femoral artery access. I used the modified Seldinger technique to puncture the femoral artery and a 5 Martiniquais vascular sheath was placed. I then used standard 5 Martiniquais FL4 and JR4 catheters to engage and inject the left and right coronary arteries respectively in standard projections. Following this I used a 5 Martiniquais angled pigtail catheter to document left-sided hemodynamics and central aortic pressures. Following this a decision was made to place a intra-aortic balloon pump. This was exchanged over the 5 Martiniquais catheter that was already in the femoral artery over the guidewire the intra-aortic balloon pump was placed under fluoroscopic visualization into the descending thoracic aorta. One-to-one counterpulsation was initiated. The balloon pump was sutured into position as well as the 8 Martiniquais access sheath. this critically ill patient was taken back to the ICU with no evidence of any procedural complications he is in critical condition Findings:: hemodynamics: Central aortic pressure is 78 over 58 left ventricle 78/15 end-diastolic pressure 24 there is no gradient upon pullback across the aortic valve. The left ventricle was not injected during this procedure because of acute renal insufficiency who the left main coronary artery is medium in caliber without significant stenosis the LAD is a small-caliber vessel that appears to be diffusely disease. It gives rise to a proximal diagonal branch after which it is chronically occluded. A ramus intermedius branch takes off from the left main distributing in position of the OM1. The ramus branch is free of significant disease. The circumflex is a medium caliber artery giving rise to another 2nd OM 2 branch. This OM 2 is medium in caliber and free of disease. The right coronary arteries moderate to large in caliber has mild luminal irregularities but is otherwise patent. The RPDA and RPL branches are free of disease. There is collateral filling from the distal right to the LAD through the septals. Conclusion:: 1. Single-vessel coronary artery disease with chronic total occlusion of the LAD after the 1st diagonal branch takes its origin 2. right coronary dominant circulation with collateral filling to the occluded LAD as described above 3. systemic hypotension. Patient was placed on balloon pump support the hope is that this along with maintenance of sinus rhythm will improve his hemodynamic status. Strong consideration for transfer to higher level of care for advanced hemodynamic support Nasir Carmona
[2023-07-08] MEDS: PERFLUTREN LIPID MICROSPHERES 1.5 ML VIAL DILUTED TO 10 ML TOTAL VOLUME IV PUSH (13:15)
[2023-07-08 13:35] LABS: Creatine Kinase 143 U/L (55-170)
--- NOTE | 2023-07-08 13:39 | PC.NURSE ---
Addendum entered by Yumiko Sandhu RN 07/08/23 14:08: Patient currently on Fentanyl at 50mcg/hr, Versed at 2mg/hr, Levophed at 26 mcg/min, and phenylephrine at 40 mcg/min at time of assessment from packing house laborer. MD aware of medication doses/ rates. Original Note: Patient arrived back to ICU at 1305. Report received at bedside. Balloon pump intact to Right femoral artery. RN to monitor patient.
[2023-07-08] MEDS: CEFEPIME 1 GM/NS 50 ML 1 GM/50 ML BAG IVPB (14:25)
[2023-07-08] MEDS: PANTOPRAZOLE SODIUM IV 40 MG VIAL IV PUSH (14:25)
[2023-07-08] MEDS: VANCOMYCIN 1,250 MG/NS 250 ML 1,250 MG/250 ML BAG 166.67 MG IVPB ×2 (14:26→14:27)
[2023-07-08] MEDS: CENTRAL LINE FLUSH 10 ML IV PUSH (14:28)
[2023-07-08 14:33] LABS: Partial Thromboplastin Time 28.6 SECONDS (22.3-36.8)
[2023-07-08 14:40] LABS: Glucose Point of Care 176 mg/dl (65-105)
[2023-07-08] MEDS: NOREPINEPHRINE 8 MG/D5W 250 ML 8 MG/250 ML BAG 56.25 MG IV CONT (15:00)
--- NOTE | 2023-07-08 15:19 | IVDEFINITY ---
Prior to administration of IV Definity the patient was educated on the risks and benefits of the imaging enhancing agent including potential adverse side effects. The patient verbalized understanding. Allergies were verified. No exclusion criteria were identified and at least one of the following inclusion criteria were met: 1) physician request, 2) patient technically difficult to image (per the [place] [employer] guidelines of two or more segments not discernable within the apical view), or 3) questionable left ventricular function. ?
--- NOTE | 2023-07-08 15:40 | PC.NURSE ---
Air Evac team at bedside. Patient disconnected from RN monitors and placed on Air Evac team transport monitors. Patient connected to portable ventilator circuit. RN at bedside monitoring patient at time. Balloon pump still at 1:1 ratio.
--- NOTE | 2023-07-08 16:20 | PC.NURSE ---
Patient departed ICU department at 1611. All equipment transported with patient. Patient transported on Air EVAC ventilator with ET tube noted to be in correct placement. OG tube intact and in correct placement, balloon pump at 1:1 ratio. Oxygen saturations noted to be at 98% at time of departure from ICU.
[2023-07-08 16:48] LABS: Eosinophil Urine Rare % (None Seen)
[2023-07-08 16:49] LABS: Urine Eos QC 2nd Tech Confirmed
--- NOTE | 2023-07-08 20:08 | P.PCNBED_ITS ---
Procedures Central Line Placement Right IJ: Central Line Date: 07/08/23 Central Line Time: 06:35 Consent: I have discussed with the patient and/or surrogate, the non-emergent placement of a central venous catheter, including its clinical necessity/indication and associated potential risks and complications. The patient and/or surrogate understand(s) and acknowledge(s) the need to proceed with central venous catheter insertion as an important element of the patient's clinical management. Time Out Performed: Yes Patient Position: trendelenburg Patient placed on monitor/pulse ox: Yes Provider Prep: mask, sterile gown, sterile gloves, Max. sterile barrier precautions, cap and hand hygiene with conventional soap/water or alcohol based hand rub Central line prep: 2% Chlorhexidine scrub Local anesthesia used: other anesthetic (sedation) Sterile US Technique with sterile gel/sterile probe covers: Yes Central line lumen inserted: triple [place]: 16 Length (cm): 16 Post Procedure: sutured in place, good blood return, all ports aspirated, flushed, capped, transparent dressing and aseptic technique maintained throughout procedure Post procedure x-ray: tip of catheter in good position and no pneumothorax seen Patient tolerated procedure: well and no complications Complications: none Intubation Intubation Date: 07/08/23 Intubation Time: 05:45 Sedative: etomidate Mg given: 30 Paralytic: rocuronium Mg given: 80 Laryngoscope: fiber optic video scope Assist device used: fiber optic device ET tube size: 8 Tube secured depth (cm): 28 Tube secured location: lips Tube placement confirmation: visualized tube passing through cords, equal breath sounds bilaterally, no breath sounds over epigastrium and confirmation by capnometry Patient tolerated procedure: well, no complications and other (PEA)
--- NOTE | 2023-07-08 20:13 | PDCODEBLUE ---
Code Blue Note Code Blue Note Time Arrived at Code Blue: Already in room Initial Rhythm on Arrival: PEA Airway Management: Intubated Chest Compressions: In process on arrival to bedside Result of Code Blue: ROSC Cardiac Rhythm Post Code: Sinus tachycardia Code Blue Summary: Patient went into PEA right after intubation had been performed with no complications it was noted cyanotic discoloration of the face immediate chest compressions were initiated epi x 3 given ROSC achieved
--- NOTE | 2023-08-09 18:21 | PM.TDS ---
Transfer Discharge Sum: Prov Provider Date of admission: 07/08/23 12:41 Primary care physician: Shawn Linder MD Admitting clinician: Akilah Lwa DO Consults: 07/07/23 Consult to Physician Routine Comment: Consulting Provider: Michael Yuan Reason for consultation: NSTEMI Has provider been notified: Yes 07/08/23 Consult to Physician Routine Comment: Consulting Provider: Elliott Arnett Reason for consultation: cardiogenic shock Has provider been notified: Yes DS: Admitting Diagnosis Discharge Date 07/08/23 Admitting Diagnosis sob DS: Discharge Diagnosis Discharge Diagnosis (1) Shock: Code(s): R57.9 - Shock, unspecified Status: Acute Assessment and Plan: Most likely cardiogenic versus septic shock. -patient with PEA cardiac arrest requiring intubation, -elevated lactic acid, acute kidney injury, multiorgan failure -was started on Jordon-Synephrine and Levophed was added. Maintain MAP > 65 mmHg for adequate end organ perfusion -Jordon-Synephrine has been discontinued -discussed with cardiology regarding patient's cardiomyopathy, diastolic dysfunction, systolic dysfunction, moderate mitral valve regurgitation, cardiomyopathy. Ischemic evaluation is warranted. Cardiology to take patient for angiogram -patient is at risk for ventricular arrhythmias given severe cardiomyopathy (2) Acute respiratory failure: Qualifiers: Respiratory failure complication: unspecified whether with hypoxia or hypercapnia Qualified Code(s): J96.00 - Acute respiratory failure, unspecified whether with hypoxia or hypercapnia Code(s): J96.00 - Acute respiratory failure, unspecified whether with hypoxia or hypercapnia Status: Acute Assessment and Plan: Acute respiratory failure likely related to cardiac arrest -chest x-ray shows diffuse bilateral pulmonary edema -patient intubated on 07/08/2023 -currently on CMV mode of ventilation, peep was increased to 10, tidal volumes are decreased to 450 mL to prevent from volume trauma -started on bronchodilators -chest x-ray and ABGs reviewed -sedated with fentanyl and Versed infusion, maintain RASS of 0 to -2 (3) Acute kidney injury: Code(s): N17.9 - Acute kidney failure, unspecified Status: Acute Assessment and Plan: Acute kidney injury likely related from cardiogenic shock, patient also on losartan at home, history of hypertension and diabetes which could be factoring in his renal injury -chest x-ray shows bilateral pulmonary edema, patient did get some Lasix overnight -low urine output, worsening creatinine (0.7 on admission,) -creatinine up to 3.00 -continue monitor urine output, renal function and electrolytes -patient on pressors (4) Cardiomyopathy: Qualifiers: Cardiomyopathy type: dilated Qualified Code(s): I42.0 - Dilated cardiomyopathy Code(s): I42.9 - Cardiomyopathy, unspecified Status: Acute Assessment and Plan: Severe cardiomyopathy could be multifactorial, related to hypertension, diabetes, ischemic cardiomyopathy, related to atrial fib/flutter -cardiology following the patient -patient ultimately will require Jardiance, Entresto, spironolactone, beta-darío and diuretics but currently not a candidate given his state of shock under clinical status. -06/15/2023: Echocardiogram Summary ? 1. Technically suboptimal study due to poor sonographic images. ? 2. Definity contrast administered improved wall motion interpretation. ? 3. Left ventricular chamber dimension is moderately enlarged. ? 4. Left ventricular systolic function is severely globally reduced, estimated at 25-30%. ? 5. There is mild concentric increased left ventricular wall thickness. ? 6. The left ventricular diastolic function is grade II diastolic dysfunction. ? 7. E/e' 18 is elevated. ? 8. Left atrial chamber dimension is moderately enlarged. ? 9. There is mild aortic valve sclerosis. ? 10. The
== END 2023-07-08 16:11 | disposition short-term general hospital (02) | DRG 192 ==
LOC: ANHED 12:39 → ANHIMU 13:57 → ANHICU 07-08 03:39
PROVIDERS: Internal Medicine; Internal Medicine Cardiovascular Disease; Specialist; Student in an Organized Health Care Education/Training Program; Admitting Provider Student in an Organized Health Care Education/Training Program; Emergency Provider Emergency Medicine; PCP Emergency Medicine; Visit Provider Student in an Organized Health Care Education/Training Program
PROC: 4A023N7 Measurement of Cardiac Sampling and Pressure, Left Heart, Percutaneous Approach (ICD-10-PCS; CPT 93452; principal; 2023-07-08 10:45)
PROC: 5A02210 Assistance with Cardiac Output using Balloon Pump, Continuous (ICD-10-PCS; 2023-07-08 10:45)
DX: R57.0 Cardiogenic shock (principal); J96.00 Acute respiratory failure, unspecified whether with hypoxia or hypercapnia; I21.A1 Myocardial infarction type 2; I11.0 Hypertensive heart disease with heart failure; I50.43 Acute on chronic combined systolic (congestive) and diastolic (congestive) heart failure; A41.9 Sepsis, unspecified organism; I42.0 Dilated cardiomyopathy; Z68.45 Body mass index [BMI] 70 or greater, adult; I48.92 Unspecified atrial flutter; R65.21 Severe sepsis with septic shock; J44.1 Chronic obstructive pulmonary disease with (acute) exacerbation; I25.10 Atherosclerotic heart disease of native coronary artery without angina pectoris; I25.82 Chronic total occlusion of coronary artery; N17.9 Acute kidney failure, unspecified; I97.121 Postprocedural cardiac arrest following other surgery; E11.9 Type 2 diabetes mellitus without complications; I48.91 Unspecified atrial fibrillation; F17.210 Nicotine dependence, cigarettes, uncomplicated; E78.2 Mixed hyperlipidemia; G47.33 Obstructive sleep apnea (adult) (pediatric); Z20.822 Contact with and (suspected) exposure to COVID-19; Z68.37 Body mass index [BMI] 37.0-37.9, adult; Z91.199 Patient's noncompliance with other medical treatment and regimen due to unspecified reason; Z79.4 Long term (current) use of insulin; E66.01 Morbid (severe) obesity due to excess calories
CPT/HCPCS: 31500; 33967; 36415; 36600; 71045; 71275; 80048; 80053; 82375; 82550; 82805; 82948; 83050; 83605; 83690; 83735; 83880; 84100; 84484; 85025; 85027; 85380; 85610; 85730; 85999; 87040; 87086; 87637; 92950; 93005; 93458; 94002; 94003; 94640; 94660; 96365; 96366; 96367; 96374; 96375; 99285; A9270; C1751; C1887; C1894; C8929; C9113; G0378; G0379; J0171; J0282; J0692; J1644; J1815; J1940; J2060; J2250; J2270; J2371; J3010; J3370; J7030; J7040; J7060; Q9957; Q9967

== ENCOUNTER 2023-07-24 08:52 | Emergency (ER) | payer OTHER, SELFPAY ==
[2023-07-24 09:02] VITALS: BP 92/52; PULSE 85; RESP 16; TEMP 36.1; O2SAT 99
--- NOTE | 2023-07-24 09:16 | ED.GENADULT ---
HPI - General Adult General Chief complaint: Skin/Abscess/Foreign Body Stated complaint: WOUND CHECK Source: patient, family, RN notes reviewed and old records reviewed History of Present Illness HPI narrative: 53 yo M presents to urgent care with significant other at side. Pt fell in parking lot attempting to get into urgent care. Pt was escorted via staff and wheelchair into from outside. Pt states he is just here to have his bandages changed and his vitals checked. Pt was recently discharged from [facility] yesterday morning after refusing to go to cardiac rehab. Pt was transferred to [facility] from [facility] where he went into cardiac arrest and was placed on ECMO. Pt recieved an intra-aortic balloon pump and dx with cardiogenic shock during this stent. Pt presents with brown/yellow drainage from his wounds to his right clavicular area and left groin. Pt states he has not picked up his meds yet but was planning on it. Pt denies any chest pain, SOB, or dizziness. Pt talks in short sentences and appears pale. Related Data Home Medications Medication Instructions Recorded Confirmed insulin glargine 100 unit/mL (3 20 unit subcut Q12H 07/07/23 07/07/23 mL) subcutaneous pen (Lantus Solostar U-100 Insulin) Allergies Allergy/AdvReac Type Severity Reaction Status Date / Time No Known Allergies Allergy Verified 07/07/23 15:02 Review of Systems Review of Systems: CONSTITUTIONAL: Denies fever, chills, or sweats. EYES: Denies visual changes, redness, or discharge. ENT: Denies otalgia and sore throat CARDIOVASCULAR: Denies chest pain, palpitations, or edema. RESPIRATORY: Denies cough or dyspnea. GASTROINTESTINAL: Denies abdominal pain, nausea, vomiting, or diarrhea. GENITOURINARY: Denies dysuria or hematuria. SKIN: Denies rash or itching. MUSCULOSKELETAL: Denies back pain, joint pain, or myalgia. NEUROLOGIC: Denies headache, numbness, or weakness. Pertinent positives per HPI. [facility] Past Medical History Medical History (Updated 07/24/23 @ 10:03 by Cassidy Bee APRN) CHF (congestive heart failure) Diabetes HLD (hyperlipidemia) HTN (hypertension) Nasal fracture Noncompliance with diabetes treatment Surgical History Surgical History No history of previous surgery Family History Family History Mother Hx of heart artery stent Pacemaker Acute myocardial infarction Congestive heart failure Hypertension Breast cancer Grandparent History of quadruple bypass Primary cancer of bone marrow Hypertension Sibling Chronic obstructive pulmonary disease Social History Social History Social History: Currently lives in an rental with his girlfriend. Surrogate decision maker: Ottoniel Butterfield, son. Code Status: Full Code. Caffeine-soda Smoking packs per day: 2 Smoking cigarettes per day: 40.0 Years smoked: 40 Smoking pack-years: 80.00 Smoking status: Current every day smoker Tobacco type: cigarettes Second hand tobacco smoke exposure: Yes Alcohol intake: never Alcohol use details: quit 3 yrs ago Lack of Transportation: No Lack of Food: Never True Current Housing: I Have Housing Concerned About Future Housing: No Difficulty Paying Gas/Electric Bills: No Difficulty Paying for Meds: No Currently Unemployed: No Education: High School Diploma/GED Difficulty w/ Childcare or Family Care: No Gender identity (if verbalized by the patient): Male Spiritual care concerns: No Comments At the time of my signature, I reviewed and agree with the nursing past medical, surgical, social, and family history. There is no relevant family history pertinent to the patient complaint. Exam Narrative: GENERAL: Pale, unkept, in mild distress HEAD: normocephalic, atraumatic. EYES: Sclera
--- NOTE | 2023-07-24 11:41 | ECG_ITS ---
Measurements Intervals [place] Rate: 73 P: 30 NV: 163 QRS: 30 QRSD: 110 T: 68 QT: 427 QTc: 471 Interpretive Statements SINUS RHYTHM CANNOT RULE OUT SEPTAL INFARCT, AGE INDETERMINATE BORDERLINE ST-T WAVE ABNORMALITY- LAT/HIGH LAT LEADS BASELINE ARTIFACT- I, II, III, AVR, AVL ABNORMAL ECG COMPARED TO ECG 07/08/2023 10:08:00 NO SIGNIFICANT CHANGES Electronically Signed On 07-25-2023 6:45:44 ENGINEERING RECRUITER by Adalid Barrios D.O.
== END 2023-07-24 09:40 | disposition short-term general hospital (02) ==
PROVIDERS: Emergency Provider Nurse Practitioner Family; PCP Emergency Medicine
DX: R53.1 Weakness (principal); T81.49XA Infection following a procedure, other surgical site, initial encounter; R94.31 Abnormal electrocardiogram [ECG] [EKG]; F17.210 Nicotine dependence, cigarettes, uncomplicated; E11.9 Type 2 diabetes mellitus without complications; Z79.4 Long term (current) use of insulin; I11.0 Hypertensive heart disease with heart failure; I50.9 Heart failure, unspecified; E78.5 Hyperlipidemia, unspecified
CPT/HCPCS: 93005; 99213; G0463

== ENCOUNTER 2023-07-24 10:08 | Emergency (ER) | payer OTHER, SELFPAY ==
[2023-07-24 10:12] VITALS: BP 103/67; PULSE 75; RESP 16; TEMP 36.4; O2SAT 100
--- NOTE | 2023-07-24 11:18 | PC.NURSE ---
attempted to c all pt back to room, pt not in lobby. last time seen pt was wheeled out out of lobby by son in wheelchair
== END 2023-07-24 11:18 | disposition left against medical advice (07) ==
LOC: ANHED 11:28
PROVIDERS: PCP Emergency Medicine
DX: L08.9 Local infection of the skin and subcutaneous tissue, unspecified (principal)
CPT/HCPCS: 99199

== ENCOUNTER 2023-07-27 11:35 | Outpatient (CLI) | payer OTHER, SELFPAY ==
[2023-07-27 19:28] LABS: Alanine Aminotransferase 237 U/L (6-50); Alkaline Phosphatase 319 U/L (38-126); Anion Gap 4 mmol/L (8-16); Aspartate Amino Transferase 174 U/L (17-59); Bilirubin,Total 1.6 mg/dL (0.2-1.3); Blood Urea Nitrogen 17 mg/dL (9-20); Calcium 8.4 mg/dL (8.4-10.2); Carbon Dioxide 28 mmol/L (22-30); Chloride 103 mmol/L (98-107); Estimated Glomerular Filt Rate > 60; Glucose 166 mg/dL (65-110); Potassium 4.7 mmol/L (3.4-5.0); Sodium 135 mmol/L (137-145)
[2023-07-27 19:36] LABS: NT Pro B Type Natriuretic Pept 3760 pg/mL (19.9-100)
[2023-07-27 20:38] LABS: Hemoglobin A1C 6.1 % (<5.7)
[2023-07-27 20:49] LABS: Basophils Absolute Auto 0.1 K/mm3 (0.0-0.1); Basophils Percent Auto 0.9 % (0.2-1.2); Eosinophils Absolute Auto 0.2 K/mm3 (0-0.3); Eosinophils Percent Auto 2.3 % (0-4.4); Hematocrit 32.3 % (42.0-52.0); Hemoglobin 9.8 g/dL (14.0-18.0); Immature Granulocyte Absolute 0.04 K/mm3 (0.00-0.031); Immature Granulocyte Percent A 0.5 % (0-0.5); Lymphocytes Absolute Auto 1.58 K/mm3 (0.9-3.2); Mean Corpuscular HGB Conc 30.3 g/dl (32-36); Mean Corpuscular Hemoglobin 31.6 pg (26-34); Mean Corpuscular Volume 104.2 fl (80-100); Monocytes Percent Auto 11.1 % (2.6-8.5); Neutrophils Absolute Auto 5.9 K/mm3 (1.3-6.7); Neutrophils Percent Auto 67.2 % (45.5-73.1); Platelet Count Result 294 k/mm3 (150-375); Red Cell Distribution Width 15.2 % (11.5-14.5); White Blood Count 8.8 K/mm3 (4.5-10.0)
== END 2023-07-27 11:36 | disposition home or self-care (01) ==
LOC: ANHGOSHLAB 11:36
PROVIDERS: PCP Emergency Medicine; Visit Provider Emergency Medicine
DX: I50.9 Heart failure, unspecified (principal); E11.9 Type 2 diabetes mellitus without complications; Z79.4 Long term (current) use of insulin
CPT/HCPCS: 36415; 80053; 83036; 83880; 85025

== ENCOUNTER 2023-08-16 13:03 | Outpatient (RCR) | payer OTHER, SELFPAY ==
[2023-08-16 13:05] VITALS: BMI 32.8
--- NOTE | 2023-08-23 12:25 | PCWOUND ---
WOCN NOTE Patient family member called to cancel appointment for today, states patient is out of town and does not know when he will be back to reschedule. I clarified that patient is still being followed by [facility], she stated Yes . Plan was for patient to have a check up today from initial assessment then patient to follow with home health on going. received orders for wound care and [facility]. no furhter appointments made at this time.
== END 2023-11-01 12:13 | disposition home or self-care (01) ==
LOC: ANHWOC 13:03
PROVIDERS: PCP Emergency Medicine; Visit Provider Emergency Medicine
DX: S31.109D Unspecified open wound of abdominal wall, unspecified quadrant without penetration into peritoneal cavity, subsequent encounter (principal)
CPT/HCPCS: 99213; G0463

== ENCOUNTER 2023-08-18 08:46 | Outpatient (CLI) | payer OTHER, SELFPAY ==
[2023-09-08 11:33] VITALS: BMI 33.5
--- NOTE | 2023-09-08 11:33 | WPDSLEEPSTUD ---
Sleep Study Date of Study: 08/18/23 Ordering Provider: Shawn Linder MD Interpreting Physician: Mandie Wiggins DO Sleep Study Type: Split Polysomnogram Height: 1.8 m Weight: 108.862 kg Body Mass Index: 33.5 Neck Circumference (inches): 19.25 [place]: 8 Reason for Sleep Study Difficulty falling and staying asleep Sleep History The patient is a 53-year-old male with congestive heart failure, diabetes, hyperlipidemia, hypertension and current tobacco use that had a sleep study ordered his primary care physician for evaluation of sleep apnea. The patient rarely awakens from sleep short of breath. He rarely awakens at night with heartburn, belching or cough. He constantly snores loudly enough that others complain. He frequently has trouble sleeping when he has a cold. He rarely wakes up gasping for air throughout the night. He occasionally has breathing problems at night observed by himself or others. He occasionally sweats excessively at night. He occasionally has heart palpitations or irregular heartbeats during the night. He rarely falls asleep during the day and rarely falls asleep while driving. He denies sleep paralysis, cataplexy and hypnagogic / hypnopompic hallucinations. He denies having trouble at school or work due to sleepiness. He occasionally feels afraid of going to sleep. He denies having nightmares. He rarely remembers his dreams. He occasionally has thoughts racing through his mind. He denies feeling sad or depressed. He occasionally has anxiety. He rarely has muscular tension. He rarely notices parts of his body jerk. He occasionally kicks during the night. He rarely has crawling and aching feelings in his legs but occasionally has leg pain during the night. He rarely grinds his teeth during sleep but never awakens with morning jaw pain. He denies being bothered by pain during the day and is rarely awakened by pain during the night. He denies waking up feeling stiff in the morning. He denies waking up with sore or achy muscles. He denies waking with pain in the neck, spine or other joints. He goes to bed between 10-11 p.m. on both weekdays and weekends. It takes him a while to fall asleep. He wakes up every few hours and when he gets, he will watch television until he can fall asleep. It typically takes him 1 hour to fall back asleep. He wakes up between 6-7 a.m. on both weekdays and weekends. He typically gets 3-4 hours of sleep per night. He will stay in bed for 30 minutes after waking in the morning. He currently lives with his girlfriend. He denies consuming any caffeinated beverages within 2 hours of bedtime. He denies engaging in physical exercise before bedtime. He will watch television before falling asleep. He denies taking naps in the afternoon or the evening. He currently smokes 1 pack of cigarettes per day. He does consume caffeinated beverages throughout the day. He denies alcohol and recreational drug use. [facility] Past Medical History Medical History CHF (congestive heart failure) s/p ECMO Diabetes HLD (hyperlipidemia) HTN (hypertension) Nasal fracture Noncompliance with diabetes treatment Surgical History Surgical History No history of previous surgery Family History Family History Mother Hx of heart artery stent Pacemaker Acute myocardial infarction Congestive heart failure Hypertension Breast cancer Grandparent History of quadruple bypass Primary cancer of bone marrow Hypertension Sibling Chronic obstructive pulmonary disease Social History Social History Social History: Currently lives in an rental with his girlfriend. Surrogate decision maker: Ottoniel Butterfield, son. Code Status: Full Code. Caffeine-soda Sm
== END 2023-08-19 06:39 | disposition home or self-care (01) ==
PROVIDERS: PCP Emergency Medicine; Visit Provider Emergency Medicine
DX: G47.33 Obstructive sleep apnea (adult) (pediatric) (principal); Z72.821 Inadequate sleep hygiene
CPT/HCPCS: 95811

== ENCOUNTER 2023-10-06 11:08 | Outpatient (CLI) | payer OTHER, SELFPAY ==
[2023-10-06 13:47] LABS: Anion Gap 7 mmol/L (8-16); Blood Urea Nitrogen 14 mg/dL (9-20); Calcium 9.1 mg/dL (8.4-10.2); Carbon Dioxide 27 mmol/L (22-30); Chloride 103 mmol/L (98-107); Estimated Glomerular Filt Rate > 60; Glucose 244 mg/dL (65-110); Potassium 3.9 mmol/L (3.4-5.0); Sodium 137 mmol/L (137-145)
== END 2023-10-06 11:09 | disposition home or self-care (01) ==
LOC: ANHGOSHLAB 11:10
PROVIDERS: PCP Emergency Medicine; Visit Provider Nurse Practitioner Adult Health
DX: N17.9 Acute kidney failure, unspecified (principal); I50.22 Chronic systolic (congestive) heart failure
CPT/HCPCS: 36415; 80048

== ENCOUNTER 2024-02-22 10:50 | Outpatient (CLI) | payer OTHER, SELFPAY ==
--- NOTE | ~2024-02-22 | XR_ITS ---
Right foot Technique: AP, oblique, and lateral views were obtained. Clinical History: Nonhealing wound Findings: No acute fracture or dislocation is seen. Osseous alignment is anatomic. Joint spaces are p reserved without erosive or degenerative change. Soft tissues are unremarkable. Impression: Unremarkable right foot radiographs. Reviewed, dictated and finalized at [facility]. Impression: Unremarkable right foot radiographs.
--- NOTE | ~2024-02-22 | XR_ITS ---
Left foot Technique: AP, oblique, and lateral views were obtained. Clinical History: Nonhealing wound Findings: No acute fracture or dislocation is seen. Osseous alignment is anatomic. Joint spaces are p reserved without erosive or degenerative change. There is a 1.1 cm linear metallic foreign body in th e plantar aspect of foot at the level of the proximal second metatarsal shaft.. Impression: 1.1 cm linear metallic foreign body at the plantar aspect of the foot at the level of the proximal se cond metatarsal shaft. Reviewed, dictated and finalized at location M. Impression: 1.1 cm linear metallic foreign body at the plantar aspect of the foot at the le bal[place]zar of the proximal second metatarsal shaft.
[2024-02-22 11:38] LABS: Basophils Absolute Auto 0.1 K/mm3 (0.0-0.1); Basophils Percent Auto 0.7 % (0.2-1.2); Eosinophils Absolute Auto 0.1 K/mm3 (0-0.3); Eosinophils Percent Auto 1.6 % (0-4.4); Hematocrit 47.6 % (42.0-52.0); Immature Granulocyte Absolute 0.03 K/mm3 (0.00-0.031); Immature Granulocyte Percent A 0.3 % (0-0.5); Lymphocytes Absolute Auto 1.94 K/mm3 (0.9-3.2); Lymphocytes Percent Auto 22.4 % (18.3-44.2); Mean Corpuscular HGB Conc 33.6 g/dl (32-36); Mean Corpuscular Volume 95.2 fl (80-100); Mean Platelet Volume 12.1 fl (7.4-10.4); Monocytes Absolute Auto 0.8 K/mm3 (0.1-0.6); Monocytes Percent Auto 9.7 % (2.6-8.5); Neutrophils Absolute Auto 5.7 K/mm3 (1.3-6.7); Neutrophils Percent Auto 65.3 % (45.5-73.1); Platelet Count Result 174 k/mm3 (150-375); Red Cell Distribution Width 13.3 % (11.5-14.5); White Blood Count 8.7 K/mm3 (4.5-10.0)
[2024-02-22 11:48] LABS: Hemoglobin A1C 5.9 % (<5.7)
== END 2024-02-22 10:51 | disposition home or self-care (01) ==
LOC: ANHLAB 10:51
PROVIDERS: PCP Emergency Medicine; Visit Provider Emergency Medicine
DX: E11.621 Type 2 diabetes mellitus with foot ulcer (principal); L97.529 Non-pressure chronic ulcer of other part of left foot with unspecified severity; L03.031 Cellulitis of right toe; Z79.4 Long term (current) use of insulin
CPT/HCPCS: 36415; 73630; 83036; 85025

== ENCOUNTER 2024-04-25 14:15 | Emergency (ER) | payer OTHER, SELFPAY ==
--- NOTE | ~2024-04-25 | XR_ITS ---
EXAMINATION: XR chest 2V DATE: 04/25/2024 14:40 INDICATION: Shortness of breath. Cough. Fever. TECHNIQUE: Frontal and lateral views of the chest were obtained. COMPARISON: Chest single view 07/08/2023 FINDINGS: There is no pneumonia, pleural effusion, or pneumothorax. The heart size is normal. There a re old healed right rib fractures. There are surgical clips in right chest wall. IMPRESSION: 1. No acute cardiopulmonary disease. Reviewed, dictated and finalized at location A.
--- NOTE | 2024-04-25 14:19 | ED.URI ---
HPI - URI/Sore Throat General Chief Complaint: Upper Respiratory Infection Stated Complaint: congested/fever/hx of heart attack Time Seen by Provider: 04/25/24 14:30 Source: patient and family Mode of arrival: ambulatory Limitations: no limitations History of Present Illness HPI Narrative: Chinedu is a 53-year-old male patient presenting to the clinic today with complaints of cough, fever, nasal congestion, body aches, and some shortness of breath that started 1 week ago. Stated his symptoms started with a productive cough with yellow phlegm. Denies any chest pain currently but does have body aches all over. Patient stated he stop smoking a couple weeks ago. Girlfriend reports that he had a heart attack back in June. His girlfriend just got out of the hospital for pneumonia and she tested negative for COVID. Stated he stop smoking approximately 2 weeks ago. MD elicited complaint: fever, cough, nasal congestion and other (body aches) Related Data Home Medications Medication Instructions Recorded Confirmed amiodarone 400 mg tablet 200 mg PO DIRECTED 07/24/23 04/25/24 empagliflozin 10 mg tablet 10 mg PO DAILY 04/25/24 04/25/24 (Jardiance) spironolactone 25 mg tablet 25 mg PO DAILY 04/25/24 04/25/24 Allergies Allergy/AdvReac Type Severity Reaction Status Date / Time No Known Allergies Allergy Verified 04/25/24 14:24 Review of Systems Review of Systems: Pertinent positives per HPI. Patient denies any rash, headache, visual changes, dizziness,chest pain, palpitations, nausea, vomiting, diarrhea, constipation, abdominal pain, or any urinary issues. [facility] Past Medical History Medical History CHF (congestive heart failure) s/p ECMO Diabetes HLD (hyperlipidemia) HTN (hypertension) Nasal fracture Noncompliance with diabetes treatment Surgical History Surgical History No history of previous surgery Family History Family History Mother Hx of heart artery stent Pacemaker Acute myocardial infarction Congestive heart failure Hypertension Breast cancer Grandparent History of quadruple bypass Primary cancer of bone marrow Hypertension Sibling Chronic obstructive pulmonary disease Social History Social History Social History: Currently lives in an rental with his girlfriend. Surrogate decision maker: Ottoniel Butterfield, son. Code Status: Full Code. Caffeine-soda Smoking packs per day: 2 Smoking cigarettes per day: 40.0 Years smoked: 40 Smoking pack-years: 80.00 Smoking status: Current every day smoker Tobacco type: cigarettes Second hand tobacco smoke exposure: Yes Alcohol intake: never Alcohol use details: quit 3 yrs ago Lack of Transportation: No Lack of Food: Never True Current Housing: I Have Housing Concerned About Future Housing: No Difficulty Paying Gas/Electric Bills: No Difficulty Paying for Meds: No Currently Unemployed: No Education: High School Diploma/GED Difficulty w/ Childcare or Family Care: No Gender identity (if verbalized by the patient): Male Spiritual care concerns: No Comments At the time of my signature, I reviewed and agree with the nursing past medical, surgical, social, and family history. There is no relevant family history pertinent to the patient complaint. Exam Narrative: General: Well-developed, obese, acutely ill-appearing, and in mild distress Head: Normocephalic, atraumatic Eyes: Pupils equally round and reactive to light bilaterally, EOM intact, sclera and conjunctive clear, no discharge, lids normal Ears: TMs intact, rate, and congested, ear canals clear, no drainage, grossly hearing normal. Nose: Nares patent, clear nasal discharge, mild inflammation, no sinus te
[2024-04-25 14:27] VITALS: BP 143/76; PULSE 105; RESP 16; TEMP 38.2; O2SAT 100
[2024-04-25] MEDS: IPRATROPIUM 0.5 MG/ALBUTEROL SULFATE 2.5 MG AMPUL.NEB 3 ML INHALATION (14:40)
[2024-04-25 14:43] VITALS: TEMP 38.3
[2024-04-25] MEDS: ACETAMINOPHEN 500 MG TABLET 1000 MG PO (14:43)
--- NOTE | 2024-04-25 14:49 | ECG_ITS ---
Test Date: 2024-04-25 15:03:19 Measurements Intervals [place] Rate: 94 P: 38 NM: 143 QRS: 39 QRSD: 95 T: 67 QT: 351 QTc: 440 Interpretive Statements SINUS RHYTHM SEPTAL MYOCARDIAL INFARCTION [40+ ms Q WAVE IN V1/V2], OF INDETERMINATE AGE No previous ECG available for comparison Electronically Signed On 04-26-2024 17:01:23 CDT by Radha Beebe M.D.
--- NOTE | 2024-04-25 15:18 | PC.NURSE ---
1510- TUBER MACHINE OPERATOR HELPER called upstairs and is talking to Dr Linder, about giving this patient steroids due to him being a diabetic.
[2024-04-25 15:23] VITALS: PULSE 98; RESP 18; O2SAT 99
== END 2024-04-25 15:23 | disposition home or self-care (01) ==
PROVIDERS: Emergency Provider Nurse Practitioner Family; PCP Emergency Medicine
DX: J40 Bronchitis, not specified as acute or chronic (principal); B34.9 Viral infection, unspecified; F17.210 Nicotine dependence, cigarettes, uncomplicated; I11.0 Hypertensive heart disease with heart failure; I50.9 Heart failure, unspecified; E11.9 Type 2 diabetes mellitus without complications; E78.5 Hyperlipidemia, unspecified; Z79.84 Long term (current) use of oral hypoglycemic drugs; I25.2 Old myocardial infarction
CPT/HCPCS: 71046; 93005; 94640; 99213; A9270; G0463

== ENCOUNTER 2024-10-30 08:12 | Emergency (ER) | payer OTHER, SELFPAY ==
[2024-10-30 08:26] VITALS: BP 110/88; PULSE 74; RESP 16; TEMP 36.1; O2SAT 98
--- NOTE | 2024-10-30 08:31 | ED_ITS ---
HPI - Dental/Oral General Chief complaint: Dental/Oral Stated complaint: Tooth Ache Time Seen by Provider: 10/30/24 08:31 Source: patient, family, RN notes reviewed and old records reviewed Mode of arrival: ambulatory Limitations: no limitations History of Present Illness HPI Narrative: 54 year old male accompanied by with complaints of dental pain to the upper and lower right side of his jaw with some swelling to his right side of his neck. Patient reports that he pulled a right upper tooth about 3-4 days ago and now he has loose tooth to the left upper eye tooth and want me to numb tooth so he can pull it. He states that he has also pain to the right back lower molars. Patient is on daily blood thinner for cardiac athymia and states that he had a heart attack in 2022. Patient has noted caries,missing teeth and upper left eye tooth is loose. MD Complaint: tooth pain Onset (ago): day(s) (3-4) Severity: moderate Treatment prior to arrival: topical analgesic and other (Tylenol) Related Data Home Medications ?Medication ?Instructions ?Recorded ?Confirmed ?Last Taken ?Type empagliflozin 10 mg tablet 10 mg PO DAILY 04/25/24 10/30/24 Unknown History (Jardiance) spironolactone 25 mg tablet 25 mg PO DAILY 04/25/24 10/30/24 Unknown History Allergies Allergy/AdvReac Type Severity Reaction Status Date / Time No Known Allergies Allergy Verified 10/30/24 08:20 Review of Systems Review of Systems: CONSTITUTIONAL: Denies fever, chills, or sweats. ENT: Denies rhinorrhea, congestion, sore throat, or otalgia. Reports dental pain to right lower molars. loose tooth left upper eye tooth and swelling to right side of neck.He pulled a right upper tooth 3-4 days ago. CARDIOVASCULAR: Denies chest pain, palpitations, or edema. RESPIRATORY: Denies cough or dyspnea. SKIN: Denies rash or itching. MUSCULOSKELETAL: Denies myalgia. NEUROLOGIC: Denies headache All systems reviewed & are unremarkable except as noted in HPI and below PMFSH Past Medical History Medical History CHF (congestive heart failure) s/p ECMO Diabetes Noncompliance with diabetes treatment HTN (hypertension) HLD (hyperlipidemia) Nasal fracture Surgical History Surgical History No history of previous surgery Family History Family History Mother Hx of heart artery stent Pacemaker Acute myocardial infarction Congestive heart failure Hypertension Breast cancer Grandparent History of quadruple bypass Primary cancer of bone marrow Hypertension Sibling Chronic obstructive pulmonary disease Social History Social History Social History: Currently lives in an rental with his girlfriend. Surrogate decision maker: Ottoniel Butterfield, son. Code Status: Full Code. Caffeine-soda Smoking packs per day: 2 Smoking cigarettes per day: 40.0 Years smoked: 40 Smoking pack-years: 80.00 Smoking status: Current every day smoker Tobacco type: cigarettes Second hand tobacco smoke exposure: Yes Alcohol intake: never Alcohol use details: quit 3 yrs ago Lack of Transportation: No Lack of Food: Never True Current Housing: I Have Housing Concerned About Future Housing: No Difficulty Paying Gas/Electric Bills: No Difficulty Paying for Meds: No Currently Unemployed: No Education: High School Diploma/GED Difficulty w/ Childcare or Family Care: No Gender identity (if verbalized by the patient): Male Spiritual care concerns: No Comments At time of signature, agree with nursing past medical, surgical, social and family history. There is no relevant family history pertinent to the presenting complaint Exam Narrative: GENERAL: Well-appearing, well-nourished, and in no acute distress. HEAD: Normocephalic, atraumatic. EYES: PERRLA and EOMI. ENT: Nares clear, no rhinorrhea or epistaxis. Mucous membranes moist. Missing teeth, broken teeth, caries noted to right lower molars, swelling of his right side of neck and loose left upper eye tooth, no trismus or Ildefonso angina noted, Patient pulled himself a right upper molar 3-4 days ago, Is daily smoker of cigarettes and on blood thinner. NECK: Supple. mild swelling to the right side of neck no tenderness on palpation CHEST: Clear to auscultation. No respiratory distress.[id number]% on room air HEART: Regular rate and rhythm. No murmur heard. Normal peripheral pulses. SKIN: Warm, dry, no rash. NEURO: No focal deficits. Alert and oriented x3. Course Course Emergency Course: Patient is aware of diagnosis, understands and agrees to treatment plan. Anticipatory guidance given. Patient agrees to follow-up as directed and is aware of reasons to seek care at the emergency department. Portions of this record may have been created with voice recognition software Level of Care: Express Care Visit Vital Signs Vital signs: Vital Signs Temperature 36.1 C L 10/30/24 08:26 Pulse Rate 74 10/30/24 08:26 Respiratory Rate 16 10/30/24 08:26 Blood Pressure 110/88 10/30/24 08:26 Pulse Oximetry 98 10/30/24 08:26 Oxygen Delivery Room Air 10/30/24 08:26 Temperature 36.1 C L 10/30/24 08:26 Pulse Rate 74 10/30/24 08:26 Respiratory Rate 16 10/30/24 08:26 Blood Pressure 110/88 10/30/24 08:26 Pulse Oximetry 98 10/30/24 08:26 Oxygen Delivery Room Air 10/30/24 08:26 Reviewed MDM - Dental/Oral MDM Narrative Medical decision making narrative: Patients pain and complaint coupled with physical findings are consistent with dentalgia. There are no focal signs of space occupying lesions that are compromising to the airway; no dysphagia, odynophagia, dysphonia, or dyspnea. No uvular deviation or soft palate edema. Patient is non-toxic appearing. The floor of the mouth is soft with no signs of Ildefonso's Angina; no induration below mandible, no neck pain.? Patient is without trismus or drooling and able to swallow secretions.? Patient is felt appropriate for discharge home with dental follow up. Differential Diagnosis Differential diagnosis: Likely dental caries, toothache, dental abscess and other (gingivitis) Medical Records Attestation: I reviewed the patient's medical records. Critical Care Time Critical Care Time Critical Care Time: No Discharge Plan Discharge Clinical Impression: Dental caries, Dentalgia, Swelling of right side of face Patient Disposition: Home, Self-Care Condition: Stable Instructions: Antibiotic Form, Toothache (ED) Additional Instructions: Avoid temperature extremes May apply heat or ice to the face Gentle brushing and flossing Antibiotic as directed Tylenol for lesser pain Use the medication as provided for severe pain--caution each tablet contains 325 mg of Tylenol--the maximum dose of Tylenol is 4000 mg in 24 hours. This medication may cause constipation consider starting a laxative at this time Follow-up with the dentist as soon as possible--see the list provided If your symptoms persist, change or worsen significantly before you can contact your personal physician then please, without delay, go to the emergency department for further evaluation. Follow-up with PCP in 7-10 days or sooner if needed quit smoking Patient Language: Eritrean Prescriptions: New penicillin V potassium 500 mg tablet 500 mg PO Q12H 10 Days Qty: 20 0RF tramadol 50 mg tablet 50 mg PO Q6H PRN (Reason: pain) Qty: 10 0RF No Action spironolactone 25 mg tablet 25 mg PO DAILY Jardiance 10 mg tablet 10 mg PO DAILY albuterol sulfate 90 mcg/actuation HFA aerosol inhaler 2 puff inhalation Q4-6H PRN (Reason: shortness of breath or wheezing) 30 Days Qty: 8.5 0RF (DME) blood-glucose meter [Blood Glucose Monitoring] Kit See Rx Instructions .Route Qty: 1 0RF Rx Instructions: As directed (DME) lancets [BD Ultra Fine Lancets] 33 gauge misc See Rx Instructions .Route Qty: 100 0RF Rx Instructions: As directed aspirin 81 mg tablet,chewable 1 tablet PO DAILY Qty: 90 3RF pantoprazole 40 mg tablet,delayed release (DR/EC) 40 mg PO QAM Qty: 90 3RF (DME) pen needle, diabetic [TRUEplus Pen Needle] 31 gauge x 1/4 needle See Rx Instructions .Route Qty: 100 3RF Rx Instructions: inject insulin once daily atorvastatin 40 mg tablet 40 mg PO QHS Qty: 90 2RF (DME) Remed Airsense CPAP See Rx Instructions .Route .MEDSUPPLY Qty: 1 0RF Rx Instructions: Resmed AirSense 11 CPAP at 13 cm H2O with EPR of 1, size medium Resmed AirFit F20 full face mask, CPAP filters/tubing and heated humidity. Length of need 99+ years, (DME) Dexcom G7 Sensor Device See Rx Instructions .Route Qty: 1 0RF Rx Instructions: As directed (DME) Dexcom G7 Sensor Device See Rx Instructions .Route Qty: 1 0RF Rx Instructions: check blood sugar 4 times daily metoprolol succinate 25 mg tablet extended release 24 hr 25 mg PO DAILY Qty: 90 0RF (DME) OneTouch Ultra Test Strip See Rx Instructions .ROUTE .COMPLEX Qty: 50 0RF Dose Instruction: USE DIRECTED Rx Instructions: USE DIRECTED Eliquis 5 mg tablet 5 mg PO BID Qty: 180 1RF insulin glargine [Lantus Solostar U-100 Insulin] 100 unit/mL (3 mL) insulin pen 40 unit subcut QHS Qty: 15 3RF escitalopram oxalate [Lexapro] 10 mg tablet 10 mg PO DAILY Qty: 30 0RF Rx Instructions: NEEDS APPOINTMENT FOR FURTHER REFILLS Follow-up/Referrals: PHYSICIAN,STAMPER BLOCKER [Primary Care Provider] - Stand Alone Forms: Work/School Release IP Time of Disposition: 08:45 [employer] Coma Scale Eyes: Open Verbal: Oriented and Alert Motor: Follows Commands [place] Coma Total Score: 15
== END 2024-10-30 08:48 | disposition home or self-care (01) ==
PROVIDERS: Emergency Provider Registered Nurse
DX: K02.9 Dental caries, unspecified (principal); F17.210 Nicotine dependence, cigarettes, uncomplicated; E11.9 Type 2 diabetes mellitus without complications; Z79.4 Long term (current) use of insulin; Z79.84 Long term (current) use of oral hypoglycemic drugs; I11.0 Hypertensive heart disease with heart failure; I50.9 Heart failure, unspecified; E78.5 Hyperlipidemia, unspecified; I25.2 Old myocardial infarction; Z79.01 Long term (current) use of anticoagulants
CPT/HCPCS: 99213; G0463